=== PATIENT | female | born 1980 | race Caucasian/White ===

== ENCOUNTER → 2023-06-08 13:04 | Outpatient (REF) | payer BC, SELFPAY | LOC: PAVMRI 13:04 | PROVIDERS: ATTENDING PHYSICIAN Psychiatry & Neurology Neurology; FAMILY PHYSICIAN Family Medicine | DX: R42 Dizziness and giddiness (principal) | CPT/HCPCS: 70544; 70549; 70553; A9585 ==

== ENCOUNTER → 2023-06-18 11:51 | Outpatient (REF) | payer BC, SELFPAY | LOC: DHCBC/DCA 11:51 | PROVIDERS: ATTENDING PHYSICIAN Internal Medicine Interventional Cardiology; FAMILY PHYSICIAN Family Medicine | DX: R07.89 Other chest pain (principal); R00.2 Palpitations; M54.2 Cervicalgia | CPT/HCPCS: 78452; 93017; A9500; J2785 ==

== ENCOUNTER 2023-06-25 07:53 | Outpatient (RCR) | payer BC, SELFPAY ==
[2023-06-02] MEDS: NSS 500 IV (09:18)
[2023-06-02] MEDS: TYLENOL 650 MG PO (09:19)
[2023-06-02] MEDS: BENADRYL 50.5 MG IV (09:21)
[2023-06-02 09:27] VITALS: BP 101/77
[2023-06-02] MEDS: GAMMAGARD 200 IV ×2 (09:42→11:01)
[2023-06-02 09:46] VITALS: BP 106/73
[2023-06-02 10:16] VITALS: BP 106/71
[2023-06-02 10:46] VITALS: BP 109/74
[2023-06-02 11:16] VITALS: BP 102/68
[2023-06-02 11:50] VITALS: BP 109/74
[2023-06-03] MEDS: TYLENOL 650 MG PO (08:53)
[2023-06-03] MEDS: BENADRYL 50.5 MG IV (08:55)
[2023-06-03] MEDS: NSS 500 IV (08:57)
[2023-06-03 09:00] VITALS: BP 112/74
[2023-06-03] MEDS: GAMMAGARD 200 IV ×2 (09:19→10:36)
[2023-06-03 09:22] VITALS: BP 104/68
[2023-06-03 09:52] VITALS: BP 111/70
[2023-06-03 10:22] VITALS: BP 117/75
[2023-06-03 10:52] VITALS: BP 119/71
[2023-06-03 11:22] VITALS: BP 113/74
[2023-06-04 08:48] VITALS: BP 124/76
[2023-06-04] MEDS: NSS 500 IV (08:55)
[2023-06-04] MEDS: TYLENOL 650 MG PO (08:57)
[2023-06-04] MEDS: BENADRYL 50.5 MG IV (09:01)
[2023-06-04 09:25] VITALS: BP 113/68
[2023-06-04] MEDS: GAMMAGARD 200 IV ×2 (09:25→10:45)
[2023-06-04 09:55] VITALS: BP 113/76
[2023-06-04 10:25] VITALS: BP 114/71
[2023-06-04 10:55] VITALS: BP 105/68
[2023-06-04 11:25] VITALS: BP 112/70
[2023-06-05 07:45] VITALS: BP 125/70
[2023-06-05] MEDS: NSS 500 IV (08:15)
[2023-06-05] MEDS: TYLENOL 650 MG PO (08:16)
[2023-06-05] MEDS: BENADRYL 50.5 MG IV (08:18)
[2023-06-05] MEDS: GAMMAGARD 200 IV ×2 (08:48→10:17)
[2023-06-05 08:56] VITALS: BP 124/73
[2023-06-05 09:26] VITALS: BP 114/72
[2023-06-05 09:56] VITALS: BP 116/70
[2023-06-05 10:26] VITALS: BP 118/76
[2023-06-05 10:56] VITALS: BP 123/83
[2023-06-08 07:45] VITALS: BP 125/72
[2023-06-08] MEDS: NSS 500 IV (08:27)
[2023-06-08] MEDS: TYLENOL 650 MG PO (08:29)
[2023-06-08] MEDS: BENADRYL 50.5 MG IV (08:30)
[2023-06-08] MEDS: GAMMAGARD 200 IV ×2 (09:01→10:17)
[2023-06-08 09:04] VITALS: BP 110/61
[2023-06-08 09:34] VITALS: BP 111/64
[2023-06-08 10:04] VITALS: BP 115/65
[2023-06-08 10:34] VITALS: BP 110/58
[2023-06-08 11:04] VITALS: BP 110/61
[2023-06-22 08:30] VITALS: BP 123/74
[2023-06-22] MEDS: NSS 500 IV (09:05)
[2023-06-22] MEDS: BENADRYL 50.5 MG IV (09:07)
[2023-06-22] MEDS: TYLENOL 650 MG PO (09:08)
[2023-06-22] MEDS: GAMMAGARD 200 IV ×2 (09:36→10:51)
[2023-06-22 09:40] VITALS: BP 103/75
[2023-06-22 10:10] VITALS: BP 101/71
[2023-06-22 10:40] VITALS: BP 105/73
[2023-06-22 11:10] VITALS: BP 103/75
[2023-06-22 11:40] VITALS: BP 108/75
[2023-06-23 08:06] VITALS: BP 117/71
[2023-06-23] MEDS: TYLENOL 650 MG PO (08:15)
[2023-06-23] MEDS: NSS 500 IV (08:16)
[2023-06-23] MEDS: BENADRYL 50.5 MG IV (08:20)
[2023-06-23 08:45] VITALS: BP 114/73
[2023-06-23] MEDS: GAMMAGARD 200 IV ×2 (08:45→10:04)
[2023-06-23 09:15] VITALS: BP 106/70
[2023-06-23 09:45] VITALS: BP 113/79
[2023-06-23 10:15] VITALS: BP 124/88
[2023-06-23 10:43] VITALS: BP 112/75
[2023-06-24 08:06] VITALS: BP 121/76
[2023-06-24] MEDS: NSS 500 IV (08:07)
[2023-06-24] MEDS: TYLENOL 650 MG PO (08:10)
[2023-06-24] MEDS: BENADRYL 50.5 MG IV (08:12)
[2023-06-24 08:40] VITALS: BP 112/76
[2023-06-24] MEDS: GAMMAGARD 200 IV ×2 (08:40→09:56)
[2023-06-24 09:10] VITALS: BP 112/76
[2023-06-24 09:40] VITALS: BP 108/68
[2023-06-24 10:10] VITALS: BP 112/67
[2023-06-24 10:40] VITALS: BP 114/78
[2023-06-25 08:00] VITALS: BP 118/72
[2023-06-25] MEDS: NSS 500 IV (08:10)
[2023-06-25] MEDS: TYLENOL 650 MG PO (08:11)
[2023-06-25] MEDS: BENADRYL 50.5 MG IV (08:14)
[2023-06-25] MEDS: GAMMAGARD 200 IV ×2 (08:44→09:58)
[2023-06-25 08:45] VITALS: BP 118/76
[2023-06-25 09:15] VITALS: BP 117/75
[2023-06-25 09:45] VITALS: BP 120/83
[2023-06-25 10:15] VITALS: BP 126/80
[2023-06-25 10:43] VITALS: BP 125/89
== END 2023-06-25 15:39 | disposition home or self-care (01) ==
LOC: OID 07:53
PROVIDERS: ATTENDING PHYSICIAN Psychiatry & Neurology Neurology; FAMILY PHYSICIAN Family Medicine; OTHER PHYSICIAN Internal Medicine Endocrinology, Diabetes & Metabolism
DX: G25.82 Stiff-man syndrome (principal); G70.00 Myasthenia gravis without (acute) exacerbation; M32.9 Systemic lupus erythematosus, unspecified; D51.9 Vitamin B12 deficiency anemia, unspecified
CPT/HCPCS: 96365; 96366; 96367; J1569

== ENCOUNTER 2023-07-17 07:57 | Outpatient (RCR) | payer BC, SELFPAY ==
[2023-06-26 08:10] VITALS: BP 112/68
[2023-06-26] MEDS: TYLENOL 650 MG PO (08:18)
[2023-06-26] MEDS: NSS 500 IV (08:20)
[2023-06-26] MEDS: BENADRYL 50.5 MG IV (08:20)
[2023-06-26 08:40] VITALS: BP 114/72
[2023-06-26] MEDS: GAMMAGARD 200 IV ×2 (08:41→10:02)
[2023-06-26 09:10] VITALS: BP 113/72
[2023-06-26 09:40] VITALS: BP 117/70
[2023-06-26 10:10] VITALS: BP 116/75
[2023-06-26 10:35] VITALS: BP 117/76
[2023-07-13 07:45] VITALS: BP 118/79
[2023-07-13] MEDS: TYLENOL 650 MG PO (08:37)
[2023-07-13] MEDS: BENADRYL 50.5 MG IV (08:38)
[2023-07-13] MEDS: NSS 500 IV (08:39)
[2023-07-13] MEDS: GAMMAGARD 50 IV (09:00)
[2023-07-13 09:04] VITALS: BP 114/71
[2023-07-13 09:34] VITALS: BP 107/75
[2023-07-13] MEDS: GAMMAGARD 300 IV (09:37)
[2023-07-13 10:04] VITALS: BP 107/77
[2023-07-13 10:34] VITALS: BP 109/75
[2023-07-13 11:04] VITALS: BP 118/77
[2023-07-14] MEDS: NSS 500 IV (08:46)
[2023-07-14] MEDS: TYLENOL 650 MG PO (08:48)
[2023-07-14] MEDS: BENADRYL 50.5 MG IV (08:49)
[2023-07-14 08:55] VITALS: BP 124/82
[2023-07-14] MEDS: GAMMAGARD 50 IV (09:13)
[2023-07-14 09:16] VITALS: BP 125/79
[2023-07-14 09:46] VITALS: BP 133/86
[2023-07-14] MEDS: GAMMAGARD 300 IV (09:49)
[2023-07-14 10:16] VITALS: BP 118/79
[2023-07-14 10:46] VITALS: BP 126/83
[2023-07-14 11:00] VITALS: BP 126/82
[2023-07-15] MEDS: NSS 500 IV (08:17)
[2023-07-15] MEDS: TYLENOL 650 MG PO (08:18)
[2023-07-15] MEDS: BENADRYL 50.5 MG IV (08:20)
[2023-07-15 08:31] VITALS: BP 121/75
[2023-07-15 08:47] VITALS: BP 111/73
[2023-07-15] MEDS: GAMMAGARD 50 IV (08:47)
[2023-07-15 09:17] VITALS: BP 111/80
[2023-07-15] MEDS: GAMMAGARD 300 IV (09:23)
[2023-07-15 09:47] VITALS: BP 108/83
[2023-07-15 10:17] VITALS: BP 116/81
[2023-07-15 10:47] VITALS: BP 112/72
[2023-07-16 08:00] VITALS: BP 122/80
[2023-07-16] MEDS: NSS 500 IV (08:14)
[2023-07-16] MEDS: TYLENOL 650 MG PO (08:16)
[2023-07-16] MEDS: BENADRYL 50.5 MG IV (08:17)
[2023-07-16] MEDS: GAMMAGARD 50 IV (08:42)
[2023-07-16 08:48] VITALS: BP 114/73
[2023-07-16 09:18] VITALS: BP 117/86
[2023-07-16] MEDS: GAMMAGARD 300 IV (09:19)
[2023-07-16 09:48] VITALS: BP 113/72
[2023-07-16 10:18] VITALS: BP 116/79
[2023-07-16 10:48] VITALS: BP 121/77
[2023-07-17] VITALS (7 sets, daily range): BP systolic 114–126; BP diastolic 77–82
[2023-07-17] MEDS: NSS 500 IV (08:19)
[2023-07-17] MEDS: TYLENOL 650 MG PO (08:20)
[2023-07-17] MEDS: BENADRYL 50.5 MG IV (08:22)
[2023-07-17] MEDS: GAMMAGARD 50 IV (08:45)
[2023-07-17] MEDS: GAMMAGARD 300 IV (09:18)
== END 2023-07-20 08:06 | disposition home or self-care (01) ==
LOC: OID 07:57
PROVIDERS: ATTENDING PHYSICIAN Psychiatry & Neurology Neurology; FAMILY PHYSICIAN Family Medicine; OTHER PHYSICIAN Internal Medicine Endocrinology, Diabetes & Metabolism
DX: G25.82 Stiff-man syndrome (principal); G70.00 Myasthenia gravis without (acute) exacerbation; M32.9 Systemic lupus erythematosus, unspecified; D51.9 Vitamin B12 deficiency anemia, unspecified
CPT/HCPCS: 96361; 96365; 96366; 96367; J1569

== ENCOUNTER 2023-08-25 07:54 | Outpatient (RCR) | payer BC, SELFPAY ==
[2023-08-03] MEDS: NSS 500 IV (08:39)
[2023-08-03] MEDS: BENADRYL 50.5 MG IV (08:41)
[2023-08-03] MEDS: TYLENOL 650 MG PO (08:42)
[2023-08-03 08:47] VITALS: BP 112/75
[2023-08-03 09:10] VITALS: BP 111/78
[2023-08-03] MEDS: GAMMAGARD 50 IV (09:10)
[2023-08-03 09:13] VITALS: BP 115/73
[2023-08-03 09:43] VITALS: BP 121/73
[2023-08-03] MEDS: GAMMAGARD 300 IV (09:47)
[2023-08-03 10:13] VITALS: BP 122/68
[2023-08-03 10:59] VITALS: BP 112/73
[2023-08-04 08:00] VITALS: BP 123/80
[2023-08-04] MEDS: BENADRYL 50.5 MG IV (08:18)
[2023-08-04] MEDS: TYLENOL 650 MG PO (08:19)
[2023-08-04] MEDS: NSS 500 IV (08:20)
[2023-08-04 08:44] VITALS: BP 113/68
[2023-08-04] MEDS: GAMMAGARD 50 IV (08:44)
[2023-08-04 09:00] VITALS: BP 117/79
[2023-08-04] MEDS: GAMMAGARD 300 IV (09:21)
[2023-08-04 09:30] VITALS: BP 116/81
[2023-08-04 10:00] VITALS: BP 113/74
[2023-08-04 10:30] VITALS: BP 120/76
[2023-08-05] MEDS: BENADRYL 50.5 MG IV (08:16)
[2023-08-05] MEDS: TYLENOL 650 MG PO (08:18)
[2023-08-05] MEDS: NSS 250 IV ×2 (08:19→10:20)
[2023-08-05 08:31] VITALS: BP 114/74
[2023-08-05] MEDS: GAMMAGARD 50 IV (08:47)
[2023-08-05 08:49] VITALS: BP 115/73
[2023-08-05 09:19] VITALS: BP 119/74
[2023-08-05] MEDS: GAMMAGARD 300 IV (09:25)
[2023-08-05 09:49] VITALS: BP 110/73
[2023-08-05 10:19] VITALS: BP 115/75
[2023-08-05 10:49] VITALS: BP 119/72
[2023-08-06 07:55] VITALS: BP 122/74
[2023-08-06] MEDS: TYLENOL 650 MG PO (08:19)
[2023-08-06] MEDS: BENADRYL 50.5 MG IV (08:20)
[2023-08-06] MEDS: NSS 250 IV ×2 (08:21→10:32)
[2023-08-06 08:50] VITALS: BP 122/74
[2023-08-06] MEDS: GAMMAGARD 50 IV (08:50)
[2023-08-06] MEDS: GAMMAGARD 300 IV (09:24)
[2023-08-06 11:10] VITALS: BP 118/74
[2023-08-07] MEDS: TYLENOL 650 MG PO (08:09)
[2023-08-07] MEDS: BENADRYL 50.5 MG IV (08:11)
[2023-08-07] MEDS: NSS 250 IV ×2 (08:13→10:30)
[2023-08-07] MEDS: GAMMAGARD 50 IV (08:37)
[2023-08-07 08:41] VITALS: BP 116/72
[2023-08-07 09:11] VITALS: BP 110/73
[2023-08-07] MEDS: GAMMAGARD 300 IV (09:17)
[2023-08-07 09:41] VITALS: BP 114/75
[2023-08-07 10:11] VITALS: BP 114/75
[2023-08-07 10:30] VITALS: BP 111/74
[2023-08-24] MEDS: TYLENOL 650 MG PO (08:24)
[2023-08-24] MEDS: BENADRYL 50.5 MG IV (08:25)
[2023-08-24] MEDS: NSS 250 IV (08:27)
[2023-08-24 08:36] VITALS: BP 113/67
[2023-08-24] MEDS: GAMMAGARD 50 IV (08:56)
[2023-08-24 09:03] VITALS: BP 109/64
[2023-08-24 09:33] VITALS: BP 101/70
[2023-08-24] MEDS: GAMMAGARD 300 IV (09:33)
[2023-08-24 10:03] VITALS: BP 112/67
[2023-08-24 10:33] VITALS: BP 105/74
[2023-08-24 11:03] VITALS: BP 108/70
[2023-08-25 07:55] VITALS: BP 114/82
[2023-08-25] MEDS: BENADRYL 50.5 MG IV (08:14)
[2023-08-25] MEDS: TYLENOL 650 MG PO (08:15)
[2023-08-25] MEDS: NSS 250 IV (08:16)
[2023-08-25] MEDS: GAMMAGARD 50 IV (08:47)
[2023-08-25 08:51] VITALS: BP 108/66
[2023-08-25 09:21] VITALS: BP 119/75
[2023-08-25] MEDS: GAMMAGARD 300 IV (09:24)
[2023-08-25 09:51] VITALS: BP 116/67
[2023-08-25 10:21] VITALS: BP 115/66
[2023-08-25 10:40] VITALS: BP 109/72
== END 2023-08-25 14:42 | disposition home or self-care (01) ==
LOC: OID 07:54
PROVIDERS: ATTENDING PHYSICIAN Psychiatry & Neurology Neurology; FAMILY PHYSICIAN Family Medicine; OTHER PHYSICIAN Internal Medicine Endocrinology, Diabetes & Metabolism
DX: G25.82 Stiff-man syndrome (principal); G70.00 Myasthenia gravis without (acute) exacerbation; M32.9 Systemic lupus erythematosus, unspecified; D51.9 Vitamin B12 deficiency anemia, unspecified
CPT/HCPCS: 96365; 96366; 96367; 96368; J1569

== ENCOUNTER 2023-09-18 07:56 | Outpatient (RCR) | payer BC, SELFPAY ==
[2023-08-26] MEDS: NSS 250 IV (08:50)
[2023-08-26 08:53] VITALS: BP 105/72
[2023-08-26] MEDS: TYLENOL 650 MG PO (08:57)
[2023-08-26] MEDS: BENADRYL 50.5 MG IV (08:58)
[2023-08-26 09:24] VITALS: BP 114/70
[2023-08-26] MEDS: GAMMAGARD 50 IV (09:24)
[2023-08-26 09:54] VITALS: BP 111/74
[2023-08-26] MEDS: GAMMAGARD 300 IV (09:59)
[2023-08-26 10:24] VITALS: BP 108/60
[2023-08-26 10:54] VITALS: BP 115/70
[2023-08-26 11:13] VITALS: BP 110/70
[2023-08-27 08:30] VITALS: BP 121/76
[2023-08-27] MEDS: TYLENOL 650 MG PO (08:49)
[2023-08-27] MEDS: BENADRYL 50.5 MG IV (08:50)
[2023-08-27] MEDS: NSS 250 IV (08:52)
[2023-08-27] MEDS: GAMMAGARD 50 IV (09:20)
[2023-08-27 09:24] VITALS: BP 107/72
[2023-08-27 09:54] VITALS: BP 108/72
[2023-08-27] MEDS: GAMMAGARD 300 IV (09:59)
[2023-08-27 10:24] VITALS: BP 107/72
[2023-08-27 10:54] VITALS: BP 119/71
[2023-08-27 11:24] VITALS: BP 115/73
[2023-08-28] MEDS: TYLENOL 650 MG PO (08:08)
[2023-08-28] MEDS: NSS 250 IV (08:09)
[2023-08-28] MEDS: BENADRYL 50.5 MG IV (08:09)
[2023-08-28 08:22] VITALS: BP 119/73
[2023-08-28] MEDS: GAMMAGARD 50 IV (08:37)
[2023-08-28 08:42] VITALS: BP 116/80
[2023-08-28 09:12] VITALS: BP 115/79
[2023-08-28] MEDS: GAMMAGARD 300 IV (09:14)
[2023-08-28 09:42] VITALS: BP 117/74
[2023-08-28 10:12] VITALS: BP 122/75
[2023-08-28 10:35] VITALS: BP 115/77
[2023-09-14] MEDS: NSS 250 IV (08:00)
[2023-09-14 08:05] VITALS: BP 116/73
[2023-09-14] MEDS: TYLENOL 650 MG PO (08:31)
[2023-09-14] MEDS: BENADRYL 50.5 MG IV (08:31)
[2023-09-14 08:45] LABS: % Basophils 0.9 % (0-2); % Immature Granulocytes 0.2 % (0-0.5); % Lymphocytes 26.8 % (20.5-51.1); % Monocytes 8.3 % (1.7-9.3); % Neutrophils 61.8 % (42.2-75.2); Absolute Eosinophils 0.1 10^3/uL (0-0.7); Absolute Lymphocytes 1.2 10^3/uL (1.2-3.4); Absolute Monocytes 0.4 10^3/uL (0.1-0.6); Absolute Neutrophils 2.7 10^3/uL (1.4-6.5); Hematocrit 37.2 % (37.0-47.0); Hemoglobin 13.1 g/dL (12.0-16.0); Mean Corp Hgb Conc. 35.2 g/dL (33.0-37.0); Mean Corpuscular Hgb 36.3 pg (27.0-31.0); Mean Platelet Volume 10.2 fL (7.4-10.4); Nucleated Red Blood Cells % 0 %; Platelet Count 251 10^3/uL (130-400); Red Blood Cell Count 3.61 10^6/uL (4.20-5.40); White Blood Cell Count 4.4 10^3/uL (4.8-10.8)
[2023-09-14] MEDS: GAMMAGARD 50 IV (08:58)
[2023-09-14 08:59] VITALS: BP 115/71
[2023-09-14 09:30] VITALS: BP 112/68
[2023-09-14 09:31] LABS: ALT (SGPT) 33 U/L (0-35); AST (SGOT) 61 U/L (14-36); Albumin 3.9 g/dl (3.5-5.0); Alkaline Phosphatase 91 U/L (38-126); Blood Urea Nitrogen 13 mg/dl (7-17); Calcium 9.4 mg/dl (8.4-10.2); Carbon Dioxide 22 mmol/L (22-30); Chloride 103 mmol/L (98-107); Glucose 106 mg/dl (70-99); Potassium 3.6 mmol/L (3.5-5.1); Sodium 135 mmol/L (135-145); Total Bilirubin 0.9 mg/dl (0.2-1.3); Total Protein 7.6 g/dl (6.3-8.2); eGFR > 60.00
[2023-09-14] MEDS: GAMMAGARD 300 IV (09:33)
[2023-09-14 09:47] LABS: Complement C3 136 mg/dl (88-165)
[2023-09-14 10:00] VITALS: BP 103/63
[2023-09-14 10:30] VITALS: BP 102/66
[2023-09-14 10:45] VITALS: BP 108/67
[2023-09-14 11:06] LABS: Erythrocyte Sed Rate 66 mm/hour (0-20)
[2023-09-14 19:20] LABS: Hepatitis B Surface Antigen Negative (Negative)
[2023-09-14 19:29] LABS: Hepatitis A IgM Antibody Negative (Negative); Hepatitis B Core Ab, IgM Negative (Negative)
[2023-09-14 19:38] LABS: Hepatitis B Core Ab, Total Negative (Negative); Hepatitis B Surface Antibody Positive; Hepatitis C Antibody Negative (Negative)
[2023-09-14 20:06] LABS: Hepatitis A Antibody, Total Positive (Negative)
[2023-09-15 08:00] VITALS: BP 115/69
[2023-09-15] MEDS: TYLENOL 650 MG PO (08:15)
[2023-09-15] MEDS: BENADRYL 50.5 MG IV (08:17)
[2023-09-15] MEDS: NSS 250 IV (08:18)
[2023-09-15] MEDS: GAMMAGARD 50 IV (08:45)
[2023-09-15 08:49] VITALS: BP 105/68
[2023-09-15 09:19] VITALS: BP 116/70
[2023-09-15] MEDS: GAMMAGARD 300 IV (09:22)
[2023-09-15 09:49] VITALS: BP 106/68
[2023-09-15 10:19] VITALS: BP 107/69
[2023-09-15 10:35] VITALS: BP 109/69
[2023-09-15 14:45] LABS: HIV Combo Negative (Negative)
[2023-09-16 01:26] LABS: ds-DNA Ab, IgG Reflex To Titer 16 IU (0-24)
[2023-09-16] MEDS: BENADRYL 50.5 MG IV (10:51)
[2023-09-16] MEDS: NSS 250 IV (10:53)
[2023-09-16] MEDS: TYLENOL 650 MG PO (10:53)
[2023-09-16 10:59] VITALS: BP 118/79
[2023-09-16] MEDS: GAMMAGARD 50 IV (11:22)
[2023-09-16 11:26] VITALS: BP 122/76
[2023-09-16 11:56] VITALS: BP 112/80
[2023-09-16] MEDS: GAMMAGARD 300 IV (12:00)
[2023-09-16 12:26] VITALS: BP 120/70
[2023-09-16 12:56] VITALS: BP 123/75
[2023-09-16 13:26] VITALS: BP 117/72
[2023-09-17 08:00] VITALS: BP 124/70
[2023-09-17] MEDS: NSS 250 IV (08:20)
[2023-09-17] MEDS: TYLENOL 650 MG PO (08:21)
[2023-09-17] MEDS: BENADRYL 50.5 MG IV (08:22)
[2023-09-17] MEDS: GAMMAGARD 50 IV (08:49)
[2023-09-17 08:53] VITALS: BP 110/76
[2023-09-17 09:23] VITALS: BP 107/73
[2023-09-17] MEDS: GAMMAGARD 300 IV (09:26)
[2023-09-17 09:53] VITALS: BP 117/79
[2023-09-17 10:23] VITALS: BP 114/75
[2023-09-17 10:53] VITALS: BP 114/72
[2023-09-17 11:28] LABS: 24 Hour Urine Total Volume Random mL; 5HIAA, Urine 4.8 mg/L; 5HIAA/Creatinine Ratio 2 mg/gCR (0-14); Creatinine, Urine per Volume 263 mg/dL; Urine Collection Length Random hr
[2023-09-18 08:00] VITALS: BP 119/78
[2023-09-18] MEDS: TYLENOL 650 MG PO (08:11)
[2023-09-18] MEDS: BENADRYL 50.5 MG IV (08:13)
[2023-09-18] MEDS: GAMMAGARD 50 IV (08:47)
[2023-09-18 08:54] VITALS: BP 109/72
[2023-09-18] MEDS: GAMMAGARD 300 IV (09:23)
[2023-09-18 09:32] VITALS: BP 107/77
[2023-09-18 10:02] VITALS: BP 119/81
[2023-09-18 10:32] VITALS: BP 109/78
[2023-09-18 10:50] VITALS: BP 112/73
[2023-09-18 14:41] LABS: Quantiferon Plus TB1 minus NIL 0.01 IU/mL (<=0.34); Quantiferon Plus TB2 minus NIL 0.01 IU/mL (<=0.34); Quantiferon TB Gold Plus Negative (Negative)
== END 2023-09-22 08:18 | disposition home or self-care (01) ==
LOC: OID 07:56
PROVIDERS: ATTENDING PHYSICIAN Psychiatry & Neurology Neurology; FAMILY PHYSICIAN Family Medicine; OTHER PHYSICIAN Internal Medicine Endocrinology, Diabetes & Metabolism; OTHER PHYSICIAN Internal Medicine Rheumatology
DX: G25.82 Stiff-man syndrome (principal); G70.00 Myasthenia gravis without (acute) exacerbation; M32.9 Systemic lupus erythematosus, unspecified; D51.9 Vitamin B12 deficiency anemia, unspecified
CPT/HCPCS: 80053; 83497; 83835; 85025; 85652; 86140; 86160; 86225; 86480; 86704; 86705; 86706; 86708; 86709; 86803; 87340; 87389; 96365; 96366; 96367; J1569

== ENCOUNTER 2023-10-23 08:16 | Outpatient (RCR) | payer BC, SELFPAY ==
[2023-10-05] MEDS: TYLENOL 650 MG PO (08:32)
[2023-10-05] MEDS: BENADRYL 50.5 MG IV (08:34)
[2023-10-05] MEDS: NSS 250 IV (08:35)
[2023-10-05 08:51] VITALS: BP 105/73
[2023-10-05] MEDS: GAMMAGARD 50 IV (09:03)
[2023-10-05 09:07] VITALS: BP 121/69
[2023-10-05 09:37] VITALS: BP 109/72
[2023-10-05] MEDS: GAMMAGARD 300 IV (09:38)
[2023-10-05 10:07] VITALS: BP 113/72
[2023-10-05 10:37] VITALS: BP 116/62
[2023-10-05 11:07] VITALS: BP 106/74
[2023-10-06] MEDS: TYLENOL 650 MG PO (08:24)
[2023-10-06] MEDS: NSS 250 IV (08:24)
[2023-10-06] MEDS: BENADRYL 50.5 MG IV (08:25)
[2023-10-06 08:43] VITALS: BP 116/78
[2023-10-06] MEDS: GAMMAGARD 50 IV (08:53)
[2023-10-06 08:57] VITALS: BP 113/74
[2023-10-06 09:27] VITALS: BP 114/72
[2023-10-06] MEDS: GAMMAGARD 300 IV (09:32)
[2023-10-06 09:57] VITALS: BP 108/74
[2023-10-06 10:27] VITALS: BP 113/76
[2023-10-06 10:57] VITALS: BP 120/76
[2023-10-07 08:00] VITALS: BP 124/78
[2023-10-07] MEDS: TYLENOL 650 MG PO (08:16)
[2023-10-07] MEDS: BENADRYL 50.5 MG IV (08:18)
[2023-10-07] MEDS: NSS 250 IV (08:19)
[2023-10-07] MEDS: GAMMAGARD 50 IV (08:50)
[2023-10-07 08:55] VITALS: BP 109/73
[2023-10-07 09:28] VITALS: BP 109/73
[2023-10-07] MEDS: GAMMAGARD 300 IV (09:28)
[2023-10-07 09:58] VITALS: BP 115/81
[2023-10-07 10:28] VITALS: BP 112/75
[2023-10-07 10:45] VITALS: BP 122/77
[2023-10-08 08:00] VITALS: BP 122/80
[2023-10-08] MEDS: NSS 250 IV (08:17)
[2023-10-08] MEDS: BENADRYL 50.5 MG IV (08:18)
[2023-10-08] MEDS: TYLENOL 650 MG PO (08:20)
[2023-10-08] MEDS: GAMMAGARD 50 IV (08:50)
[2023-10-08 08:55] VITALS: BP 112/77
[2023-10-08 09:25] VITALS: BP 124/77
[2023-10-08] MEDS: GAMMAGARD 300 IV (09:31)
[2023-10-08 09:55] VITALS: BP 123/76
[2023-10-08 10:25] VITALS: BP 122/79
[2023-10-08 10:55] VITALS: BP 119/77
[2023-10-09 08:15] VITALS: BP 121/80
[2023-10-09 08:16] VITALS: BP 108/77
[2023-10-09] MEDS: GAMMAGARD 50 IV (08:16)
[2023-10-09 08:30] VITALS: BP 119/77
[2023-10-09] MEDS: GAMMAGARD 300 IV (08:50)
[2023-10-09 09:00] VITALS: BP 112/78
[2023-10-09 09:30] VITALS: BP 115/77
[2023-10-09 10:00] VITALS: BP 119/81
[2023-10-19] VITALS (7 sets, daily range): BP systolic 111–121; BP diastolic 70–84
[2023-10-19] MEDS: NSS 250 IV (08:20)
[2023-10-19] MEDS: TYLENOL 650 MG PO (08:23)
[2023-10-19] MEDS: BENADRYL 50.5 MG IV (08:25)
[2023-10-19] MEDS: GAMMAGARD 50 IV (08:50)
[2023-10-19] MEDS: GAMMAGARD 300 IV (09:27)
[2023-10-20 07:50] VITALS: BP 125/76
[2023-10-20 08:02] VITALS: BMI 30.4
[2023-10-20] MEDS: NSS 250 IV (08:06)
[2023-10-20] MEDS: BENADRYL 50.5 MG IV (08:07)
[2023-10-20] MEDS: TYLENOL 650 MG PO (08:08)
[2023-10-20] MEDS: GAMMAGARD 50 IV (08:36)
[2023-10-20 08:40] VITALS: BP 138/91
[2023-10-20 09:10] VITALS: BP 125/81
[2023-10-20] MEDS: GAMMAGARD 300 IV (09:15)
[2023-10-20 09:40] VITALS: BP 111/73
[2023-10-20 10:10] VITALS: BP 119/77
[2023-10-20 10:30] VITALS: BP 114/78
[2023-10-21] MEDS: TYLENOL 650 MG PO (10:36)
[2023-10-21] MEDS: NSS 250 IV (10:36)
[2023-10-21] MEDS: BENADRYL 50.5 MG IV (10:38)
[2023-10-21 10:45] VITALS: BP 129/85
[2023-10-21] MEDS: GAMMAGARD 50 IV (11:08)
[2023-10-21 11:12] VITALS: BP 115/78
[2023-10-21 11:42] VITALS: BP 120/81
[2023-10-21] MEDS: GAMMAGARD 300 IV (11:44)
[2023-10-21 12:12] VITALS: BP 112/80
[2023-10-21 12:42] VITALS: BP 124/83
[2023-10-21 12:55] VITALS: BP 120/78
[2023-10-22 08:00] VITALS: BP 120/78
[2023-10-22] MEDS: BENADRYL 50.5 MG IV (08:16)
[2023-10-22] MEDS: NSS 250 IV (08:18)
[2023-10-22] MEDS: TYLENOL 650 MG PO (08:18)
[2023-10-22] MEDS: GAMMAGARD 50 IV (08:50)
[2023-10-22 08:52] VITALS: BP 116/75
[2023-10-22 09:22] VITALS: BP 115/80
[2023-10-22] MEDS: GAMMAGARD 300 IV (09:26)
[2023-10-22 09:52] VITALS: BP 115/73
[2023-10-22 10:22] VITALS: BP 123/74
[2023-10-23] MEDS: TYLENOL 650 MG PO (08:33)
[2023-10-23] MEDS: BENADRYL 50.5 MG IV (08:34)
[2023-10-23] MEDS: NSS 250 IV (08:35)
[2023-10-23 08:45] VITALS: BP 124/74
[2023-10-23] MEDS: GAMMAGARD 50 IV (09:10)
[2023-10-23 09:11] VITALS: BP 120/76
[2023-10-23 09:41] VITALS: BP 116/76
[2023-10-23] MEDS: GAMMAGARD 300 IV (09:44)
[2023-10-23 10:11] VITALS: BP 122/82
[2023-10-23 10:41] VITALS: BP 130/81
[2023-10-23 11:03] VITALS: BP 130/78
== END 2023-10-25 23:59 | disposition home or self-care (01) ==
LOC: OID 08:16
PROVIDERS: ATTENDING PHYSICIAN Psychiatry & Neurology Neurology; FAMILY PHYSICIAN Family Medicine; OTHER PHYSICIAN Internal Medicine Endocrinology, Diabetes & Metabolism; OTHER PHYSICIAN Internal Medicine Rheumatology
DX: G25.82 Stiff-man syndrome (principal); G70.00 Myasthenia gravis without (acute) exacerbation; M32.9 Systemic lupus erythematosus, unspecified; D51.9 Vitamin B12 deficiency anemia, unspecified
CPT/HCPCS: 96361; 96365; 96366; 96367; 96368; J1569

== ENCOUNTER 2023-11-13 07:58 | Outpatient (RCR) | payer BC, SELFPAY ==
[2023-11-09 08:00] VITALS: BP 112/53
[2023-11-09] MEDS: BENADRYL 50.5 MG IV (08:30)
[2023-11-09] MEDS: TYLENOL 650 MG PO (08:31)
[2023-11-09] MEDS: NSS 250 IV (08:32)
[2023-11-09] MEDS: GAMMAGARD 50 IV (09:00)
[2023-11-09 09:03] VITALS: BP 121/77
[2023-11-09 09:34] VITALS: BP 119/75
[2023-11-09] MEDS: GAMMAGARD 300 IV (09:37)
[2023-11-09 10:04] VITALS: BP 120/76
[2023-11-09 10:34] VITALS: BP 114/75
[2023-11-09 10:50] VITALS: BP 120/74
[2023-11-10] MEDS: NSS 250 IV (08:16)
[2023-11-10] MEDS: BENADRYL 50.5 MG IV (08:18)
[2023-11-10] MEDS: TYLENOL 650 MG PO (08:19)
[2023-11-10 08:27] VITALS: BP 124/77
[2023-11-10] MEDS: GAMMAGARD 50 IV (08:53)
[2023-11-10 08:55] VITALS: BP 122/72
[2023-11-10 09:25] VITALS: BP 125/77
[2023-11-10] MEDS: GAMMAGARD 300 IV (09:40)
[2023-11-10 09:55] VITALS: BP 119/74
[2023-11-10 10:25] VITALS: BP 111/76
[2023-11-10 11:00] VITALS: BP 111/76
[2023-11-11 08:00] VITALS: BP 112/76
[2023-11-11] MEDS: BENADRYL 50.5 MG IV (08:23)
[2023-11-11] MEDS: TYLENOL 650 MG PO (08:24)
[2023-11-11] MEDS: NSS 250 IV (08:25)
[2023-11-11] MEDS: GAMMAGARD 50 IV (08:53)
[2023-11-11 08:54] VITALS: BP 117/78
[2023-11-11 09:24] VITALS: BP 118/75
[2023-11-11] MEDS: GAMMAGARD 300 IV (09:27)
[2023-11-11 09:54] VITALS: BP 114/74
[2023-11-11 10:24] VITALS: BP 114/78
[2023-11-12 08:00] VITALS: BP 117/80
[2023-11-12] MEDS: NSS 250 IV (08:15)
[2023-11-12] MEDS: BENADRYL 50.5 MG IV (08:17)
[2023-11-12] MEDS: TYLENOL 650 MG PO (08:19)
[2023-11-12] MEDS: GAMMAGARD 50 IV (08:54)
[2023-11-12 08:57] VITALS: BP 122/77
[2023-11-12 09:27] VITALS: BP 124/83
[2023-11-12] MEDS: GAMMAGARD 300 IV (09:30)
[2023-11-12 09:57] VITALS: BP 124/83
[2023-11-12 10:27] VITALS: BP 119/77
[2023-11-12 10:50] VITALS: BP 125/80
[2023-11-13] MEDS: TYLENOL 650 MG PO (08:09)
[2023-11-13] MEDS: NSS 250 IV (08:10)
[2023-11-13] MEDS: BENADRYL 50.5 MG IV (08:13)
[2023-11-13 08:22] VITALS: BP 122/72
[2023-11-13] MEDS: GAMMAGARD 50 IV (08:43)
[2023-11-13 08:45] VITALS: BP 126/76
[2023-11-13 09:15] VITALS: BP 130/77
[2023-11-13] MEDS: GAMMAGARD 300 IV (09:19)
[2023-11-13 09:45] VITALS: BP 131/79
[2023-11-13 10:15] VITALS: BP 129/77
[2023-11-13 10:50] VITALS: BP 135/85
== END 2023-11-16 08:48 | disposition home or self-care (01) ==
LOC: OID 07:58
PROVIDERS: ATTENDING PHYSICIAN Psychiatry & Neurology Neurology; FAMILY PHYSICIAN Family Medicine; OTHER PHYSICIAN Internal Medicine Endocrinology, Diabetes & Metabolism; OTHER PHYSICIAN Internal Medicine Rheumatology
DX: G25.82 Stiff-man syndrome (principal); G70.00 Myasthenia gravis without (acute) exacerbation; M32.9 Systemic lupus erythematosus, unspecified; D51.9 Vitamin B12 deficiency anemia, unspecified
CPT/HCPCS: 96365; 96366; 96367; 96413; J1569

== ENCOUNTER 2023-12-18 07:58 | Outpatient (RCR) | payer BC, SELFPAY ==
[2023-11-30 08:00] VITALS: BP 111/77
[2023-11-30] MEDS: TYLENOL 650 MG PO (08:29)
[2023-11-30] MEDS: NSS 250 IV (08:30)
[2023-11-30] MEDS: BENADRYL 50.5 MG IV (08:31)
[2023-11-30 09:10] VITALS: BP 112/76
[2023-11-30] MEDS: GAMMAGARD 50 IV (09:10)
[2023-11-30 09:40] VITALS: BP 112/76
[2023-11-30] MEDS: GAMMAGARD 300 IV (09:40)
[2023-11-30 10:10] VITALS: BP 114/78
[2023-11-30 10:40] VITALS: BP 114/72
[2023-11-30 10:55] VITALS: BP 114/72
[2023-12-01] MEDS: NSS 250 IV (08:49)
[2023-12-01] MEDS: TYLENOL 650 MG PO (08:50)
[2023-12-01] MEDS: BENADRYL 50.5 MG IV (08:51)
[2023-12-01 09:01] VITALS: BP 112/76
[2023-12-01] MEDS: GAMMAGARD 50 IV (09:21)
[2023-12-01 09:25] VITALS: BP 113/74
[2023-12-01 09:55] VITALS: BP 110/72
[2023-12-01] MEDS: GAMMAGARD 300 IV (09:56)
[2023-12-01 10:25] VITALS: BP 118/73
[2023-12-01 10:55] VITALS: BP 116/73
[2023-12-01 11:15] VITALS: BP 118/78
[2023-12-02 08:00] VITALS: BP 118/82
[2023-12-02] MEDS: NSS 250 IV (08:05)
[2023-12-02] MEDS: BENADRYL 50.5 MG IV (08:06)
[2023-12-02] MEDS: TYLENOL 650 MG PO (08:07)
[2023-12-02 08:32] VITALS: BP 118/79
[2023-12-02] MEDS: GAMMAGARD 50 IV (08:32)
[2023-12-02 09:00] VITALS: BP 114/79
[2023-12-02] MEDS: GAMMAGARD 300 IV (09:08)
[2023-12-02 09:30] VITALS: BP 111/75
[2023-12-02 10:00] VITALS: BP 112/77
[2023-12-02 10:20] VITALS: BP 117/81
[2023-12-03] MEDS: NSS 250 IV (08:09)
[2023-12-03] MEDS: BENADRYL 50.5 MG IV (08:10)
[2023-12-03] MEDS: TYLENOL 650 MG PO (08:11)
[2023-12-03 08:21] VITALS: BP 118/75
[2023-12-03] MEDS: GAMMAGARD 50 IV (08:42)
[2023-12-03 08:44] VITALS: BP 116/74
[2023-12-03 09:14] VITALS: BP 122/72
[2023-12-03] MEDS: GAMMAGARD 300 IV (09:16)
[2023-12-03 09:44] VITALS: BP 114/79
[2023-12-03 10:14] VITALS: BP 119/77
[2023-12-03 10:44] VITALS: BP 121/81
[2023-12-04] MEDS: NSS 250 IV (08:09)
[2023-12-04] MEDS: TYLENOL 650 MG PO (08:10)
[2023-12-04] MEDS: BENADRYL 50.5 MG IV (08:12)
[2023-12-04 08:26] VITALS: BP 125/74
[2023-12-04] MEDS: GAMMAGARD 50 IV (08:42)
[2023-12-04 08:46] VITALS: BP 111/77
[2023-12-04 09:16] VITALS: BP 115/71
[2023-12-04] MEDS: GAMMAGARD 300 IV (09:19)
[2023-12-04 09:46] VITALS: BP 117/79
[2023-12-04 10:16] VITALS: BP 110/77
[2023-12-04 10:46] VITALS: BP 116/78
[2023-12-14] MEDS: BENADRYL 50.5 MG IV (08:21)
[2023-12-14] MEDS: TYLENOL 650 MG PO (08:22)
[2023-12-14 08:48] VITALS: BP 111/71
[2023-12-14] MEDS: GAMMAGARD 50 IV (08:48)
[2023-12-14 09:00] VITALS: BP 113/74
[2023-12-14] MEDS: GAMMAGARD 300 IV (09:22)
[2023-12-14 09:30] VITALS: BP 114/71; BP 120/80
[2023-12-14 10:00] VITALS: BP 115/75
[2023-12-14 10:30] VITALS: BP 118/79
[2023-12-15 08:00] VITALS: BP 133/81
[2023-12-15] MEDS: TYLENOL 650 MG PO (08:21)
[2023-12-15] MEDS: BENADRYL 50.5 MG IV (08:22)
[2023-12-15] MEDS: GAMMAGARD 50 IV (08:54)
[2023-12-15 08:57] VITALS: BP 116/79
[2023-12-15 09:27] VITALS: BP 114/73
[2023-12-15] MEDS: GAMMAGARD 300 IV (09:31)
[2023-12-15 09:57] VITALS: BP 115/76
[2023-12-15 10:27] VITALS: BP 118/78
[2023-12-15 10:57] VITALS: BP 117/77
[2023-12-16 08:43] VITALS: BP 121/75
[2023-12-16] MEDS: TYLENOL 650 MG PO (08:45)
[2023-12-16] MEDS: BENADRYL 50.5 MG IV (08:54)
[2023-12-16] MEDS: GAMMAGARD 50 IV (09:24)
[2023-12-16 09:25] VITALS: BP 122/71
[2023-12-16] MEDS: GAMMAGARD 300 IV (09:58)
[2023-12-16 10:00] VITALS: BP 121/80
[2023-12-16 10:30] VITALS: BP 120/79
[2023-12-16 11:00] VITALS: BP 120/79
[2023-12-16 11:30] VITALS: BP 123/81
[2023-12-17] MEDS: TYLENOL 650 MG PO (08:08)
[2023-12-17] MEDS: BENADRYL 50.5 MG IV (08:12)
[2023-12-17] MEDS: NSS 250 IV (08:14)
[2023-12-17 08:19] VITALS: BP 123/73
[2023-12-17 08:36] VITALS: BP 120/77
[2023-12-17] MEDS: GAMMAGARD 50 IV (08:36)
[2023-12-17 09:06] VITALS: BP 118/78
[2023-12-17] MEDS: GAMMAGARD 300 IV (09:08)
[2023-12-17 09:36] VITALS: BP 115/77
[2023-12-17 10:06] VITALS: BP 115/77
[2023-12-17 10:25] VITALS: BP 118/78
[2023-12-18] MEDS: TYLENOL 650 MG PO (08:29)
[2023-12-18] MEDS: BENADRYL 50.5 MG IV (08:30)
[2023-12-18 08:41] VITALS: BP 114/78
[2023-12-18] MEDS: GAMMAGARD 50 IV (08:59)
[2023-12-18 09:02] VITALS: BP 115/72
[2023-12-18 09:32] VITALS: BP 118/73
[2023-12-18] MEDS: GAMMAGARD 300 IV (09:37)
[2023-12-18 10:02] VITALS: BP 116/74
[2023-12-18 10:32] VITALS: BP 115/74
[2023-12-18 10:55] VITALS: BP 116/74
== END 2023-12-26 23:59 | disposition home or self-care (01) ==
LOC: OID 07:58
PROVIDERS: ATTENDING PHYSICIAN Psychiatry & Neurology Neurology; FAMILY PHYSICIAN Family Medicine; OTHER PHYSICIAN Internal Medicine Endocrinology, Diabetes & Metabolism; OTHER PHYSICIAN Internal Medicine Rheumatology
DX: G25.82 Stiff-man syndrome (principal); G70.00 Myasthenia gravis without (acute) exacerbation; M32.9 Systemic lupus erythematosus, unspecified; D51.9 Vitamin B12 deficiency anemia, unspecified
CPT/HCPCS: 96365; 96366; 96367; J1569

== ENCOUNTER 2024-01-25 07:56 | Outpatient (RCR) | payer BC, SELFPAY ==
[2024-01-04 08:15] VITALS: BP 115/75
[2024-01-04] MEDS: NSS 250 IV (08:22)
[2024-01-04] MEDS: BENADRYL 50.5 MG IV (08:23)
[2024-01-04] MEDS: TYLENOL 650 MG PO (08:23)
[2024-01-04 08:50] VITALS: BP 110/68
[2024-01-04] MEDS: GAMMAGARD 50 IV (08:50)
[2024-01-04 09:00] VITALS: BP 105/63
[2024-01-04] MEDS: GAMMAGARD 300 IV (09:23)
[2024-01-04 09:30] VITALS: BP 128/67
[2024-01-04 10:00] VITALS: BP 109/72
[2024-01-04 10:30] VITALS: BP 109/74
[2024-01-05 08:35] VITALS: BP 120/83
[2024-01-05] MEDS: NSS 500 IV (08:51)
[2024-01-05 08:58] VITALS: BP 115/77
[2024-01-05] MEDS: GAMMAGARD 50 IV (08:58)
[2024-01-05 09:30] VITALS: BP 116/76
[2024-01-05] MEDS: GAMMAGARD 300 IV (09:32)
[2024-01-05 10:00] VITALS: BP 111/73
[2024-01-05 10:30] VITALS: BP 112/72
[2024-01-05 10:50] VITALS: BP 114/74
[2024-01-07] VITALS (7 sets, daily range): BP systolic 105–112; BP diastolic 70–76
[2024-01-07] MEDS: TYLENOL 650 MG PO (08:22)
[2024-01-07] MEDS: BENADRYL 50.5 MG IV (08:22)
[2024-01-07] MEDS: GAMMAGARD 50 IV (08:49)
[2024-01-07] MEDS: GAMMAGARD 200 IV (09:23)
[2024-01-07] MEDS: GAMMAGARD 300 IV (10:18)
[2024-01-08] VITALS (7 sets, daily range): BP systolic 116–124; BP diastolic 72–78
[2024-01-08] MEDS: TYLENOL 650 MG PO (08:03)
[2024-01-08] MEDS: BENADRYL 50.5 MG IV (08:14)
[2024-01-08] MEDS: GAMMAGARD 200 IV (08:38)
[2024-01-08] MEDS: GAMMAGARD 300 IV (09:54)
[2024-01-25] MEDS: BENADRYL 50.5 MG IV (08:13)
[2024-01-25] MEDS: TYLENOL 650 MG PO (08:14)
[2024-01-25 08:15] VITALS: BP 114/80
[2024-01-25 08:38] VITALS: BP 118/83
[2024-01-25] MEDS: GAMMAGARD 50 IV (08:38)
[2024-01-25 09:00] VITALS: BP 112/75
[2024-01-25] MEDS: GAMMAGARD 300 IV (09:13)
[2024-01-25 09:30] VITALS: BP 112/73
[2024-01-25 10:00] VITALS: BP 116/74
[2024-01-25 10:25] VITALS: BP 112/72
== END 2024-01-25 14:45 | disposition home or self-care (01) ==
LOC: OID 07:56
PROVIDERS: ATTENDING PHYSICIAN Psychiatry & Neurology Neurology; FAMILY PHYSICIAN Family Medicine; OTHER PHYSICIAN Internal Medicine Endocrinology, Diabetes & Metabolism; OTHER PHYSICIAN Internal Medicine Rheumatology
DX: G25.82 Stiff-man syndrome (principal); G70.00 Myasthenia gravis without (acute) exacerbation; M32.9 Systemic lupus erythematosus, unspecified; D51.9 Vitamin B12 deficiency anemia, unspecified
CPT/HCPCS: 96365; 96366; 96367; J1569

== ENCOUNTER 2024-02-19 07:59 | Outpatient (RCR) | payer BC, SELFPAY ==
[2024-01-26 08:00] VITALS: BP 127/78
[2024-01-26] MEDS: NSS 250 IV (08:07)
[2024-01-26] MEDS: BENADRYL 50.5 MG IV (08:08)
[2024-01-26] MEDS: TYLENOL 650 MG PO (08:09)
[2024-01-26 08:34] VITALS: BP 114/73
[2024-01-26] MEDS: GAMMAGARD 50 IV (08:34)
[2024-01-26 09:00] VITALS: BP 116/77
[2024-01-26] MEDS: GAMMAGARD 300 IV (09:10)
[2024-01-26 09:30] VITALS: BP 115/73
[2024-01-26 10:00] VITALS: BP 108/73
[2024-01-26 10:25] VITALS: BP 110/74
[2024-01-27] MEDS: TYLENOL 650 MG PO (08:26)
[2024-01-27] MEDS: BENADRYL 50.5 MG IV (08:27)
[2024-01-27 08:34] VITALS: BP 104/73
[2024-01-27 08:57] VITALS: BP 110/73
[2024-01-27] MEDS: GAMMAGARD 50 IV (08:57)
[2024-01-27 09:27] VITALS: BP 108/71
[2024-01-27] MEDS: GAMMAGARD 300 IV (09:27)
[2024-01-27 09:57] VITALS: BP 109/73
[2024-01-27 10:27] VITALS: BP 112/75
[2024-01-27 10:57] VITALS: BP 111/74
[2024-01-28] MEDS: NSS 250 IV (08:08)
[2024-01-28] MEDS: TYLENOL 650 MG PO (08:08)
[2024-01-28] MEDS: BENADRYL 50.5 MG IV (08:11)
[2024-01-28 08:28] VITALS: BP 115/74
[2024-01-28] MEDS: GAMMAGARD 50 IV (08:38)
[2024-01-28 08:43] VITALS: BP 113/76
[2024-01-28 09:13] VITALS: BP 114/73
[2024-01-28] MEDS: GAMMAGARD 300 IV (09:16)
[2024-01-28 09:43] VITALS: BP 116/78
[2024-01-28 10:13] VITALS: BP 108/73
[2024-01-28 10:43] VITALS: BP 113/72
[2024-01-29 08:00] VITALS: BP 115/73
[2024-01-29] MEDS: TYLENOL 650 MG PO (08:13)
[2024-01-29] MEDS: NSS 250 IV (08:17)
[2024-01-29] MEDS: BENADRYL 50.5 MG IV (08:17)
[2024-01-29] MEDS: GAMMAGARD 50 IV (08:41)
[2024-01-29 08:43] VITALS: BP 119/76
[2024-01-29 09:13] VITALS: BP 115/80
[2024-01-29] MEDS: GAMMAGARD 300 IV (09:17)
[2024-01-29 09:43] VITALS: BP 117/69
[2024-01-29 10:13] VITALS: BP 116/79
[2024-01-29 10:43] VITALS: BP 108/74
[2024-02-15] MEDS: TYLENOL 650 MG PO (08:23)
[2024-02-15] MEDS: BENADRYL 50.5 MG IV (08:25)
[2024-02-15 08:26] VITALS: BP 114/74
[2024-02-15 08:45] VITALS: BP 113/78
[2024-02-15] MEDS: GAMMAGARD 50 IV (08:45)
[2024-02-15 09:15] VITALS: BP 120/81
[2024-02-15] MEDS: GAMMAGARD 300 IV (09:22)
[2024-02-15 09:45] VITALS: BP 114/82
[2024-02-15 10:15] VITALS: BP 111/79
[2024-02-15 10:35] VITALS: BP 119/81
[2024-02-16 07:45] VITALS: BP 111/75
[2024-02-16] MEDS: NSS 250 IV ×2 (08:18→10:45)
[2024-02-16] MEDS: BENADRYL 50.5 MG IV (08:19)
[2024-02-16] MEDS: TYLENOL 650 MG PO (08:20)
[2024-02-16] MEDS: GAMMAGARD 50 IV (08:48)
[2024-02-16 08:53] VITALS: BP 114/74
[2024-02-16 09:23] VITALS: BP 116/77
[2024-02-16] MEDS: GAMMAGARD 300 IV (09:25)
[2024-02-16 09:53] VITALS: BP 114/67
[2024-02-16 10:23] VITALS: BP 112/75
[2024-02-16 10:53] VITALS: BP 112/69
[2024-02-17] MEDS: TYLENOL 650 MG PO (08:47)
[2024-02-17] MEDS: NSS 250 IV (08:49)
[2024-02-17] MEDS: BENADRYL 50.5 MG IV (08:50)
[2024-02-17 08:57] VITALS: BP 121/75
[2024-02-17] MEDS: GAMMAGARD 50 IV (09:18)
[2024-02-17 09:20] VITALS: BP 121/75
[2024-02-17 09:25] VITALS: BP 121/75
[2024-02-17] MEDS: GAMMAGARD 300 IV (09:56)
[2024-02-17 10:13] VITALS: BP 120/81
[2024-02-17 10:43] VITALS: BP 115/76
[2024-02-17 11:13] VITALS: BP 113/75
[2024-02-18] MEDS: NSS 250 IV (08:15)
[2024-02-18] MEDS: TYLENOL 650 MG PO (08:17)
[2024-02-18] MEDS: BENADRYL 50.5 MG IV (08:19)
[2024-02-18 08:26] VITALS: BP 122/77
[2024-02-18] MEDS: GAMMAGARD 50 IV (08:49)
[2024-02-18 08:52] VITALS: BP 117/78
[2024-02-18 09:22] VITALS: BP 107/73
[2024-02-18] MEDS: GAMMAGARD 300 IV (09:24)
[2024-02-18 09:52] VITALS: BP 110/75
[2024-02-18 10:22] VITALS: BP 115/75
[2024-02-18 10:52] VITALS: BP 117/75
[2024-02-19] MEDS: NSS 250 IV (08:21)
[2024-02-19] MEDS: TYLENOL 650 MG PO (08:22)
[2024-02-19] MEDS: BENADRYL 50.5 MG IV (08:23)
[2024-02-19 08:29] VITALS: BP 117/84
[2024-02-19 08:52] VITALS: BP 119/80
[2024-02-19] MEDS: GAMMAGARD 50 IV (08:52)
[2024-02-19 09:22] VITALS: BP 116/80
[2024-02-19] MEDS: GAMMAGARD 300 IV (09:26)
[2024-02-19 09:52] VITALS: BP 112/79
[2024-02-19 10:22] VITALS: BP 122/82
[2024-02-19 10:52] VITALS: BP 123/83
== END 2024-02-22 10:00 | disposition home or self-care (01) ==
LOC: OID 07:59
PROVIDERS: ATTENDING PHYSICIAN Psychiatry & Neurology Neurology; FAMILY PHYSICIAN Family Medicine; OTHER PHYSICIAN Internal Medicine Endocrinology, Diabetes & Metabolism; OTHER PHYSICIAN Internal Medicine Rheumatology
DX: G25.82 Stiff-man syndrome (principal); G70.00 Myasthenia gravis without (acute) exacerbation; M32.9 Systemic lupus erythematosus, unspecified; D51.9 Vitamin B12 deficiency anemia, unspecified
CPT/HCPCS: 96361; 96365; 96366; 96367; J1569

== ENCOUNTER 2024-03-11 07:58 | Outpatient (RCR) | payer BC, SELFPAY ==
[2024-03-07 08:10] VITALS: BP 126/76
[2024-03-07] MEDS: BENADRYL 50.5 MG IV (08:25)
[2024-03-07] MEDS: NSS 250 IV (08:25)
[2024-03-07] MEDS: TYLENOL 650 MG PO (08:26)
[2024-03-07] MEDS: GAMMAGARD 50 IV (08:54)
[2024-03-07 08:55] VITALS: BP 117/75
[2024-03-07 09:25] VITALS: BP 120/74
[2024-03-07] MEDS: GAMMAGARD 300 IV (09:26)
[2024-03-07 09:55] VITALS: BP 118/76
[2024-03-07 10:25] VITALS: BP 116/76
[2024-03-07 10:35] VITALS: BP 111/69
[2024-03-08 08:00] VITALS: BP 112/70
[2024-03-08] MEDS: BENADRYL 50.5 MG IV (08:09)
[2024-03-08] MEDS: TYLENOL 650 MG PO (08:10)
[2024-03-08] MEDS: NSS 250 IV (08:11)
[2024-03-08 08:37] VITALS: BP 115/77
[2024-03-08] MEDS: GAMMAGARD 50 IV (08:37)
[2024-03-08 09:00] VITALS: BP 108/77
[2024-03-08] MEDS: GAMMAGARD 300 IV (09:09)
[2024-03-08 09:30] VITALS: BP 112/76
[2024-03-08 10:00] VITALS: BP 112/77
[2024-03-08 10:20] VITALS: BP 121/79
[2024-03-09 08:00] VITALS: BP 118/86
[2024-03-09] MEDS: NSS 250 IV (08:08)
[2024-03-09] MEDS: BENADRYL 50.5 MG IV (08:09)
[2024-03-09] MEDS: TYLENOL 650 MG PO (08:10)
[2024-03-09 08:35] VITALS: BP 118/86
[2024-03-09] MEDS: GAMMAGARD 50 IV (08:35)
[2024-03-09 09:00] VITALS: BP 111/77
[2024-03-09] MEDS: GAMMAGARD 300 IV (09:11)
[2024-03-09 09:30] VITALS: BP 117/76
[2024-03-09 10:00] VITALS: BP 113/76
[2024-03-09 10:25] VITALS: BP 117/80
[2024-03-10] MEDS: NSS 250 IV (08:16)
[2024-03-10] MEDS: BENADRYL 50.5 MG IV (08:17)
[2024-03-10] MEDS: TYLENOL 650 MG PO (08:18)
[2024-03-10 08:24] VITALS: BP 121/78
[2024-03-10] MEDS: GAMMAGARD 50 IV (08:46)
[2024-03-10 08:51] VITALS: BP 119/68
[2024-03-10 09:21] VITALS: BP 123/72
[2024-03-10] MEDS: GAMMAGARD 300 IV (09:23)
[2024-03-10 09:51] VITALS: BP 123/76
[2024-03-10 10:21] VITALS: BP 111/71
[2024-03-10 10:51] VITALS: BP 116/75
[2024-03-11] VITALS (7 sets, daily range): BP systolic 112–121; BP diastolic 68–83
[2024-03-11] MEDS: TYLENOL 650 MG PO (08:13)
[2024-03-11] MEDS: BENADRYL 50.5 MG IV (08:14)
[2024-03-11] MEDS: NSS 250 IV (08:17)
[2024-03-11] MEDS: GAMMAGARD 50 IV (08:42)
[2024-03-11] MEDS: GAMMAGARD 300 IV (09:23)
== END 2024-03-14 08:38 | disposition home or self-care (01) ==
LOC: OID 07:58
PROVIDERS: ATTENDING PHYSICIAN Psychiatry & Neurology Neurology; FAMILY PHYSICIAN Family Medicine; OTHER PHYSICIAN Internal Medicine Endocrinology, Diabetes & Metabolism; OTHER PHYSICIAN Internal Medicine Rheumatology
DX: G25.82 Stiff-man syndrome (principal); G70.00 Myasthenia gravis without (acute) exacerbation; M32.9 Systemic lupus erythematosus, unspecified; D51.9 Vitamin B12 deficiency anemia, unspecified
CPT/HCPCS: 96365; 96366; 96367; J1569

== ENCOUNTER 2024-04-15 07:59 | Outpatient (RCR) | payer BC, SELFPAY ==
[2024-03-28] MEDS: TYLENOL 650 MG PO (09:01)
[2024-03-28] MEDS: BENADRYL 50.5 MG IV (09:01)
[2024-03-28] MEDS: NSS 250 IV (09:03)
[2024-03-28 09:12] VITALS: BP 125/82
[2024-03-28] MEDS: GAMMAGARD 50 IV (09:35)
[2024-03-28 09:36] VITALS: BP 115/81
[2024-03-28 10:06] VITALS: BP 108/73
[2024-03-28] MEDS: GAMMAGARD 300 IV (10:06)
[2024-03-28 10:36] VITALS: BP 114/78
[2024-03-28 11:06] VITALS: BP 116/77
[2024-03-28 11:36] VITALS: BP 110/78
[2024-03-29] MEDS: NSS 250 IV (08:20)
[2024-03-29] MEDS: TYLENOL 650 MG PO (08:20)
[2024-03-29] MEDS: BENADRYL 50.5 MG IV (08:21)
[2024-03-29 08:28] VITALS: BP 115/85
[2024-03-29] MEDS: GAMMAGARD 50 IV (09:01)
[2024-03-29 09:05] VITALS: BP 117/82
[2024-03-29 09:35] VITALS: BP 119/84
[2024-03-29] MEDS: GAMMAGARD 300 IV (09:41)
[2024-03-29 10:05] VITALS: BP 118/86
[2024-03-29 10:35] VITALS: BP 125/83
[2024-03-29 10:55] VITALS: BP 123/83
[2024-03-30] MEDS: TYLENOL 650 MG PO (08:07)
[2024-03-30] MEDS: BENADRYL 50.5 MG IV (08:07)
[2024-03-30] MEDS: NSS 250 IV (08:08)
[2024-03-30 08:18] VITALS: BP 114/76
[2024-03-30] MEDS: GAMMAGARD 50 IV (08:39)
[2024-03-30 08:43] VITALS: BP 114/76
[2024-03-30 09:13] VITALS: BP 114/75
[2024-03-30] MEDS: GAMMAGARD 300 IV (09:19)
[2024-03-30 09:43] VITALS: BP 114/73
[2024-03-30 10:13] VITALS: BP 110/78
[2024-03-30 10:43] VITALS: BP 117/80
[2024-03-31 08:00] VITALS: BP 118/79
[2024-03-31] MEDS: TYLENOL 650 MG PO (08:12)
[2024-03-31] MEDS: BENADRYL 50.5 MG IV (08:13)
[2024-03-31] MEDS: NSS 250 IV (08:14)
[2024-03-31] MEDS: GAMMAGARD 50 IV (08:48)
[2024-03-31 08:49] VITALS: BP 115/79
[2024-03-31 09:19] VITALS: BP 111/80
[2024-03-31] MEDS: GAMMAGARD 300 IV (09:23)
[2024-03-31 09:49] VITALS: BP 115/80
[2024-03-31 10:19] VITALS: BP 115/82
[2024-03-31 10:40] VITALS: BP 121/86
[2024-04-01] MEDS: NSS 250 IV (08:01)
[2024-04-01] MEDS: TYLENOL 650 MG PO (08:02)
[2024-04-01] MEDS: BENADRYL 50.5 MG IV (08:07)
[2024-04-01 08:09] VITALS: BP 127/83
[2024-04-01] MEDS: GAMMAGARD 50 IV (08:34)
[2024-04-01 08:35] VITALS: BP 124/84
[2024-04-01] MEDS: GAMMAGARD 300 IV (09:09)
[2024-04-01 09:10] VITALS: BP 119/80
[2024-04-01 09:40] VITALS: BP 116/79
[2024-04-01 10:10] VITALS: BP 126/86
[2024-04-01 10:25] VITALS: BP 126/85
[2024-04-11 07:45] VITALS: BP 118/74
[2024-04-11] MEDS: TYLENOL 650 MG PO (08:28)
[2024-04-11] MEDS: BENADRYL 50.5 MG IV (08:29)
[2024-04-11] MEDS: NSS 250 IV (08:30)
[2024-04-11] MEDS: GAMMAGARD 50 IV (08:59)
[2024-04-11 09:03] VITALS: BP 107/70
[2024-04-11 09:33] VITALS: BP 102/72
[2024-04-11] MEDS: GAMMAGARD 300 IV (09:38)
[2024-04-11 10:03] VITALS: BP 105/71
[2024-04-11 10:33] VITALS: BP 112/73
[2024-04-11 11:03] VITALS: BP 108/73
[2024-04-12] MEDS: TYLENOL 650 MG PO (08:10)
[2024-04-12] MEDS: BENADRYL 50.5 MG IV (08:12)
[2024-04-12] MEDS: NSS 250 IV (08:13)
[2024-04-12 08:22] VITALS: BP 117/76
[2024-04-12] MEDS: GAMMAGARD 50 IV (08:48)
[2024-04-12 08:49] VITALS: BP 113/70
[2024-04-12 09:19] VITALS: BP 109/73
[2024-04-12] MEDS: GAMMAGARD 300 IV (09:30)
[2024-04-12 09:49] VITALS: BP 105/73
[2024-04-12 10:19] VITALS: BP 113/70
[2024-04-12 10:49] VITALS: BP 107/75
[2024-04-13] MEDS: TYLENOL 650 MG PO (07:59)
[2024-04-13] MEDS: BENADRYL 50.5 MG IV (08:01)
[2024-04-13] MEDS: NSS 250 IV (08:02)
[2024-04-13 08:08] VITALS: BP 117/71
[2024-04-13] MEDS: GAMMAGARD 50 IV (08:29)
[2024-04-13 08:31] VITALS: BP 106/73
[2024-04-13 09:01] VITALS: BP 111/71
[2024-04-13] MEDS: GAMMAGARD 300 IV (09:26)
[2024-04-13 09:31] VITALS: BP 106/70
[2024-04-13 10:01] VITALS: BP 126/74
[2024-04-13 10:31] VITALS: BP 117/76
[2024-04-14] MEDS: TYLENOL 650 MG PO (08:00)
[2024-04-14] MEDS: BENADRYL 50.5 MG IV (08:02)
[2024-04-14] MEDS: NSS 250 IV (08:03)
[2024-04-14 08:10] VITALS: BP 124/80
[2024-04-14] MEDS: GAMMAGARD 50 IV (08:35)
[2024-04-14 08:38] VITALS: BP 115/76
[2024-04-14 09:08] VITALS: BP 109/75
[2024-04-14] MEDS: GAMMAGARD 300 IV (09:14)
[2024-04-14 09:38] VITALS: BP 113/82
[2024-04-14 10:08] VITALS: BP 118/78
[2024-04-14 10:40] VITALS: BP 118/83
[2024-04-15] VITALS (7 sets, daily range): BP systolic 106–134; BP diastolic 72–82
[2024-04-15] MEDS: NSS 250 IV (08:19)
[2024-04-15] MEDS: TYLENOL 650 MG PO (08:20)
[2024-04-15] MEDS: BENADRYL 50.5 MG IV (08:21)
[2024-04-15] MEDS: GAMMAGARD 50 IV (08:48)
[2024-04-15] MEDS: GAMMAGARD 300 IV (09:24)
== END 2024-04-18 10:16 | disposition home or self-care (01) ==
LOC: OID 07:59
PROVIDERS: ATTENDING PHYSICIAN Psychiatry & Neurology Neurology; FAMILY PHYSICIAN Family Medicine; OTHER PHYSICIAN Internal Medicine Endocrinology, Diabetes & Metabolism; OTHER PHYSICIAN Internal Medicine Rheumatology
DX: G25.82 Stiff-man syndrome (principal); G70.00 Myasthenia gravis without (acute) exacerbation; M32.9 Systemic lupus erythematosus, unspecified; D51.9 Vitamin B12 deficiency anemia, unspecified
CPT/HCPCS: 96365; 96366; 96367; J1569

== ENCOUNTER 2024-05-09 07:59 | Outpatient (RCR) | payer BC, SELFPAY ==
[2024-05-02] MEDS: NSS 250 IV (08:13)
[2024-05-02] MEDS: TYLENOL 650 MG PO (08:14)
[2024-05-02] MEDS: BENADRYL 50.5 MG IV (08:15)
[2024-05-02 08:21] VITALS: BP 120/78
[2024-05-02] MEDS: GAMMAGARD 50 IV (08:43)
[2024-05-02 08:46] VITALS: BP 111/77
[2024-05-02 09:16] VITALS: BP 109/76
[2024-05-02] MEDS: GAMMAGARD 300 IV (09:22)
[2024-05-02 09:46] VITALS: BP 109/75
[2024-05-02 10:16] VITALS: BP 106/79
[2024-05-02 10:46] VITALS: BP 118/80
[2024-05-03] MEDS: TYLENOL 650 MG PO (08:10)
[2024-05-03] MEDS: BENADRYL 50.5 MG IV (08:12)
[2024-05-03] MEDS: NSS 250 IV (08:13)
[2024-05-03] MEDS: GAMMAGARD 50 IV (08:44)
[2024-05-03 08:48] VITALS: BP 120/78
[2024-05-03] MEDS: GAMMAGARD 300 IV (09:21)
[2024-05-03 10:48] VITALS: BP 118/78
--- NOTE | 2024-05-03 11:35 | PTCARENOTE ---
Titration VS inadvertently erased by associate. Pt tolerated infusion well. Ending VS within normal limits.
[2024-05-04 07:50] VITALS: BP 117/77
[2024-05-04] MEDS: TYLENOL 650 MG PO (08:19)
[2024-05-04] MEDS: BENADRYL 50.5 MG IV (08:20)
[2024-05-04] MEDS: NSS 250 IV (08:21)
[2024-05-04] MEDS: GAMMAGARD 50 IV (08:52)
[2024-05-04 08:56] VITALS: BP 116/86
[2024-05-04 09:23] VITALS: BP 129/85
[2024-05-04] MEDS: GAMMAGARD 300 IV (09:27)
[2024-05-04 09:53] VITALS: BP 111/80
[2024-05-04 10:23] VITALS: BP 113/79
[2024-05-04 10:53] VITALS: BP 115/80
[2024-05-06 07:50] VITALS: BP 127/87
[2024-05-06] MEDS: TYLENOL 650 MG PO (08:08)
[2024-05-06] MEDS: BENADRYL 50.5 MG IV (08:09)
[2024-05-06] MEDS: NSS 250 IV (08:09)
[2024-05-06] MEDS: GAMMAGARD 50 IV (08:39)
[2024-05-06 08:41] VITALS: BP 124/79
[2024-05-06 09:11] VITALS: BP 127/77
[2024-05-06] MEDS: GAMMAGARD 300 IV (09:14)
[2024-05-06 09:41] VITALS: BP 122/75
[2024-05-06 10:11] VITALS: BP 117/73
[2024-05-06 10:41] VITALS: BP 116/81
[2024-05-09] MEDS: TYLENOL 650 MG PO (08:21)
[2024-05-09] MEDS: NSS 250 IV (08:22)
[2024-05-09] MEDS: BENADRYL 50.5 MG IV (08:23)
[2024-05-09 08:36] VITALS: BP 118/73
[2024-05-09 08:53] VITALS: BP 114/75
[2024-05-09] MEDS: GAMMAGARD 50 IV (08:53)
[2024-05-09 09:23] VITALS: BP 110/73
[2024-05-09] MEDS: GAMMAGARD 300 IV (09:26)
[2024-05-09 09:53] VITALS: BP 110/72
[2024-05-09 10:23] VITALS: BP 106/76
[2024-05-09 10:40] VITALS: BP 112/85
== END 2024-05-25 12:47 | disposition home or self-care (01) ==
LOC: OID 07:59
PROVIDERS: ATTENDING PHYSICIAN Psychiatry & Neurology Neurology; FAMILY PHYSICIAN Family Medicine; OTHER PHYSICIAN Internal Medicine Endocrinology, Diabetes & Metabolism; OTHER PHYSICIAN Internal Medicine Rheumatology
DX: G25.82 Stiff-man syndrome (principal); G70.00 Myasthenia gravis without (acute) exacerbation; M32.9 Systemic lupus erythematosus, unspecified; D51.9 Vitamin B12 deficiency anemia, unspecified
CPT/HCPCS: 96365; 96366; 96367; J1569

== ENCOUNTER → 2024-06-14 11:54 | Outpatient (REF) | payer BC, SELFPAY | LOC: MRI 3T 11:54 | PROVIDERS: ATTENDING PHYSICIAN Nurse Practitioner Family | DX: M48.02 Spinal stenosis, cervical region (principal); R53.1 Weakness | CPT/HCPCS: 72156 ==

== ENCOUNTER 2024-06-24 07:49 | Outpatient (RCR) | payer BC, SELFPAY ==
[2024-05-30 09:00] VITALS: BP 115/74
[2024-05-30] MEDS: TYLENOL 650 MG PO (09:27)
[2024-05-30] MEDS: NSS 250 IV (09:28)
[2024-05-30] MEDS: BENADRYL 50.5 MG IV (09:29)
[2024-05-30] MEDS: GAMMAGARD 50 IV (09:58)
[2024-05-30 10:01] VITALS: BP 105/76
[2024-05-30 10:31] VITALS: BP 110/75
[2024-05-30] MEDS: GAMMAGARD 300 IV (10:37)
[2024-05-30 11:01] VITALS: BP 109/81
[2024-05-30 11:31] VITALS: BP 106/77
[2024-05-30 12:01] VITALS: BP 113/72
[2024-05-31 08:00] VITALS: BP 121/78
[2024-05-31] MEDS: TYLENOL 650 MG PO (08:11)
[2024-05-31] MEDS: BENADRYL 50.5 MG IV (08:12)
[2024-05-31] MEDS: NSS 250 IV (08:13)
[2024-05-31] MEDS: GAMMAGARD 50 IV (08:42)
[2024-05-31 08:46] VITALS: BP 118/72
[2024-05-31 09:16] VITALS: BP 110/75
[2024-05-31] MEDS: GAMMAGARD 300 IV (09:19)
[2024-05-31 09:46] VITALS: BP 109/78
[2024-05-31 10:16] VITALS: BP 109/75
[2024-05-31 10:46] VITALS: BP 108/82
[2024-06-01] MEDS: TYLENOL 650 MG PO (08:11)
[2024-06-01] MEDS: NSS 250 IV (08:12)
[2024-06-01] MEDS: BENADRYL 50.5 MG IV (08:12)
[2024-06-01] MEDS: GAMMAGARD 50 IV (08:41)
[2024-06-01 08:45] VITALS: BP 107/76
[2024-06-01 08:53] VITALS: BP 109/71
[2024-06-01 09:15] VITALS: BP 112/79
[2024-06-01] MEDS: GAMMAGARD 300 IV (09:19)
[2024-06-01 09:45] VITALS: BP 106/69
[2024-06-01 10:15] VITALS: BP 109/77
[2024-06-01 10:45] VITALS: BP 108/74
[2024-06-02] MEDS: TYLENOL 650 MG PO (08:48)
[2024-06-02] MEDS: BENADRYL 50.5 MG IV (08:50)
[2024-06-02] MEDS: NSS 250 IV (08:51)
[2024-06-02 09:24] VITALS: BP 113/78
[2024-06-02] MEDS: GAMMAGARD 50 IV (09:24)
[2024-06-02 09:54] VITALS: BP 112/76
[2024-06-02] MEDS: GAMMAGARD 300 IV (10:02)
[2024-06-02 10:24] VITALS: BP 110/76
[2024-06-02 10:54] VITALS: BP 110/73
[2024-06-02 11:25] VITALS: BP 112/74
[2024-06-03] MEDS: NSS 250 IV (08:15)
[2024-06-03] MEDS: TYLENOL 650 MG PO (08:16)
[2024-06-03] MEDS: BENADRYL 50.5 MG IV (08:17)
[2024-06-03 08:34] VITALS: BP 116/77
[2024-06-03] MEDS: GAMMAGARD 50 IV (08:47)
[2024-06-03 08:48] VITALS: BP 108/74
[2024-06-03 09:18] VITALS: BP 124/81
[2024-06-03] MEDS: GAMMAGARD 300 IV (09:23)
[2024-06-03 09:48] VITALS: BP 118/77
[2024-06-03 10:18] VITALS: BP 118/75
[2024-06-03 10:48] VITALS: BP 109/74
[2024-06-20] MEDS: NSS 250 IV (09:00)
[2024-06-20] MEDS: TYLENOL 650 MG PO (09:00)
[2024-06-20] MEDS: BENADRYL 50.5 MG IV (09:01)
[2024-06-20 09:03] LABS: % Basophils 0.4 % (0-2); % Eosinophils 1.8 % (0-6); % Immature Granulocytes 0.2 % (0-0.5); % Lymphocytes 27.7 % (20.5-51.1); % Neutrophils 60.9 % (42.2-75.2); Absolute Eosinophils 0.1 10^3/uL (0-0.7); Absolute Lymphocytes 1.4 10^3/uL (1.2-3.4); Absolute Monocytes 0.4 10^3/uL (0.1-0.6); Hematocrit 39.4 % (37.0-47.0); Hemoglobin 14.2 g/dL (12.0-16.0); Mean Platelet Volume 10.4 fL (7.4-10.4); Platelet Count 421 10^3/uL (130-400); Red Blood Cell Count 3.94 10^6/uL (4.20-5.40); White Blood Cell Count 4.9 10^3/uL (4.8-10.8)
[2024-06-20 09:12] VITALS: BP 100/62
[2024-06-20] MEDS: GAMMAGARD 300 IV (09:30)
[2024-06-20 09:33] VITALS: BP 102/68
[2024-06-20 10:03] VITALS: BP 101/63
[2024-06-20 10:33] VITALS: BP 96/63
[2024-06-20 10:51] LABS: ALT (SGPT) 41 U/L (0-35); AST (SGOT) 46 U/L (14-36); Albumin 3.8 g/dl (3.5-5.0); Alkaline Phosphatase 81 U/L (38-126); Blood Urea Nitrogen 5 mg/dl (7-17); Calcium 9.6 mg/dl (8.4-10.2); Carbon Dioxide 23 mmol/L (22-30); Chloride 101 mmol/L (98-107); Glucose 94 mg/dl (70-99); HDL Cholesterol 39 mg/dl; LDL Cholesterol, Calculated 163 mg/dl; Potassium 3.9 mmol/L (3.5-5.1); Sodium 135 mmol/L (135-145); Total Cholesterol 222 mg/dl (50-199); Total Protein 7.7 g/dl (6.3-8.2); Triglyceride 100 mg/dl (10-149); Very Low Density Lipoprotein 20 mg/dl (0-30); eGFR > 60.00
[2024-06-20 11:05] VITALS: BP 94/67
[2024-06-20 11:06] LABS: Free T3 3.71 pg/ml (2.77-5.27)
[2024-06-20 11:22] LABS: TSH Reflex To Free T4 1.25 uIU/ml (0.47-4.68)
[2024-06-20 11:56] LABS: Folate 2.3 ng/ml (2.76-20); Vitamin B12 752 pg/ml (239-931)
[2024-06-21] MEDS: TYLENOL 650 MG PO (10:02)
[2024-06-21] MEDS: BENADRYL 50.5 MG IV (10:03)
[2024-06-21] MEDS: NSS 250 IV (10:03)
[2024-06-21] MEDS: GAMMAGARD 300 IV (10:28)
[2024-06-21 10:31] VITALS: BP 102/65
[2024-06-21 11:01] VITALS: BP 108/74
[2024-06-21 11:31] VITALS: BP 104/68
[2024-06-21 12:01] VITALS: BP 103/68
[2024-06-22] MEDS: TYLENOL 650 MG PO (08:35)
[2024-06-22] MEDS: NSS 250 IV (08:36)
[2024-06-22] MEDS: BENADRYL 50.5 MG IV (08:36)
[2024-06-22] MEDS: GAMMAGARD 300 IV (09:03)
[2024-06-22 09:07] VITALS: BP 117/71
[2024-06-22 09:37] VITALS: BP 107/72
[2024-06-22 10:00] VITALS: BP 106/71
[2024-06-22 10:07] VITALS: BP 103/74
[2024-06-22 10:37] VITALS: BP 110/75
[2024-06-23 07:50] VITALS: BP 102/72
[2024-06-23] MEDS: TYLENOL 650 MG PO (08:06)
[2024-06-23] MEDS: NSS 250 IV (08:08)
[2024-06-23] MEDS: BENADRYL 50.5 MG IV (08:09)
[2024-06-23 08:39] VITALS: BP 108/72
[2024-06-23] MEDS: GAMMAGARD 300 IV (08:39)
[2024-06-23 09:09] VITALS: BP 116/72
[2024-06-23 09:39] VITALS: BP 114/74
[2024-06-23 10:09] VITALS: BP 111/71
[2024-06-23 10:39] VITALS: BP 112/74
[2024-06-24] MEDS: TYLENOL 650 MG PO (08:02)
[2024-06-24] MEDS: NSS 250 IV (08:03)
[2024-06-24] MEDS: BENADRYL 50.5 MG IV (08:09)
[2024-06-24] MEDS: GAMMAGARD 300 IV (08:39)
[2024-06-24 08:43] VITALS: BP 109/69
[2024-06-24 08:53] VITALS: BP 104/68
[2024-06-24 09:13] VITALS: BP 100/64
[2024-06-24 09:43] VITALS: BP 99/66
[2024-06-24 10:13] VITALS: BP 105/69
[2024-06-24 10:22] VITALS: BP 104/71
== END 2024-06-24 23:59 | disposition home or self-care (01) ==
LOC: OID 07:49
PROVIDERS: ATTENDING PHYSICIAN Psychiatry & Neurology Neurology; FAMILY PHYSICIAN Family Medicine; OTHER PHYSICIAN Internal Medicine Endocrinology, Diabetes & Metabolism; OTHER PHYSICIAN Internal Medicine Rheumatology; OTHER PHYSICIAN Nurse Practitioner Family
DX: G25.82 Stiff-man syndrome (principal); G70.00 Myasthenia gravis without (acute) exacerbation; M32.9 Systemic lupus erythematosus, unspecified; D51.9 Vitamin B12 deficiency anemia, unspecified
CPT/HCPCS: 80053; 80061; 82607; 82746; 84443; 84481; 85025; 96365; 96366; 96367; J1569

== ENCOUNTER 2024-07-15 07:51 | Outpatient (RCR) | payer BC, SELFPAY ==
[2024-07-11] MEDS: NSS 250 IV (08:10)
[2024-07-11] MEDS: TYLENOL 650 MG PO (08:12)
[2024-07-11] MEDS: BENADRYL 50.5 MG IV (08:14)
[2024-07-11 08:23] VITALS: BP 105/51
[2024-07-11] MEDS: GAMMAGARD 300 IV (08:45)
[2024-07-11 08:48] VITALS: BP 99/66
[2024-07-11 09:18] VITALS: BP 99/65
[2024-07-11 09:48] VITALS: BP 97/65
[2024-07-11 10:18] VITALS: BP 104/71
[2024-07-11 10:48] VITALS: BP 99/71
[2024-07-12] MEDS: TYLENOL 650 MG PO (08:04)
[2024-07-12] MEDS: NSS 250 IV (08:04)
[2024-07-12] MEDS: BENADRYL 50.5 MG IV (08:10)
[2024-07-12] MEDS: GAMMAGARD 300 IV (08:38)
[2024-07-12 08:41] VITALS: BP 100/71
[2024-07-12 09:11] VITALS: BP 107/73
[2024-07-12 09:41] VITALS: BP 100/68
[2024-07-12 10:11] VITALS: BP 105/72
[2024-07-12 10:20] VITALS: BP 101/71
[2024-07-12 11:55] VITALS: BP 102/66
[2024-07-13] MEDS: NSS 250 IV (08:11)
[2024-07-13] MEDS: TYLENOL 650 MG PO (08:11)
[2024-07-13] MEDS: BENADRYL 50.5 MG IV (08:12)
[2024-07-13] MEDS: GAMMAGARD 300 IV (08:42)
[2024-07-13 08:48] VITALS: BP 107/72
[2024-07-13 08:55] VITALS: BP 106/73
[2024-07-13 09:18] VITALS: BP 109/73
[2024-07-13 09:48] VITALS: BP 103/66
[2024-07-13 10:18] VITALS: BP 103/70
[2024-07-13 10:30] VITALS: BP 107/71
[2024-07-14 09:15] VITALS: BP 106/75
[2024-07-14] MEDS: NSS 250 IV (09:24)
[2024-07-14] MEDS: TYLENOL 650 MG PO (09:26)
[2024-07-14] MEDS: BENADRYL 50.5 MG IV (09:27)
[2024-07-14] MEDS: GAMMAGARD 300 IV (10:05)
[2024-07-14 10:08] VITALS: BP 103/71
[2024-07-14 10:38] VITALS: BP 110/72
[2024-07-14 11:08] VITALS: BP 99/67
[2024-07-14 11:38] VITALS: BP 104/71
[2024-07-14 11:50] VITALS: BP 102/71
[2024-07-15] MEDS: NSS 250 IV (08:11)
[2024-07-15] MEDS: TYLENOL 650 MG PO (08:12)
[2024-07-15] MEDS: BENADRYL 50.5 MG IV (08:13)
[2024-07-15 08:32] VITALS: BP 112/69
[2024-07-15] MEDS: GAMMAGARD 300 IV (08:44)
[2024-07-15 08:50] VITALS: BP 102/65
[2024-07-15 09:20] VITALS: BP 106/75
[2024-07-15 09:50] VITALS: BP 111/75
[2024-07-15 10:20] VITALS: BP 105/68
== END 2024-07-18 08:19 | disposition home or self-care (01) ==
LOC: OID 07:51
PROVIDERS: ATTENDING PHYSICIAN Psychiatry & Neurology Neurology; FAMILY PHYSICIAN Family Medicine; OTHER PHYSICIAN Internal Medicine Endocrinology, Diabetes & Metabolism; OTHER PHYSICIAN Internal Medicine Rheumatology; OTHER PHYSICIAN Nurse Practitioner Family
DX: G25.82 Stiff-man syndrome (principal); G70.00 Myasthenia gravis without (acute) exacerbation; M32.9 Systemic lupus erythematosus, unspecified; D51.9 Vitamin B12 deficiency anemia, unspecified
CPT/HCPCS: 96365; 96366; 96367; J1569

== ENCOUNTER → 2024-07-25 12:21 | Outpatient (REF) | payer BC, SELFPAY | LOC: RAD 12:21 | PROVIDERS: ATTENDING PHYSICIAN Specialist; FAMILY PHYSICIAN Family Medicine | DX: R19.4 Change in bowel habit (principal); R63.4 Abnormal weight loss | CPT/HCPCS: 74177; Q9967 ==

== ENCOUNTER 2024-08-24 07:45 | Outpatient (RCR) | payer BC, SELFPAY ==
[2024-08-01 08:09] VITALS: BP 103/70
[2024-08-01] MEDS: TYLENOL 650 MG PO (08:27)
[2024-08-01] MEDS: BENADRYL 50.5 MG IV (08:31)
[2024-08-01] MEDS: NSS 250 IV (08:37)
[2024-08-01] MEDS: GAMMAGARD 300 IV (09:09)
[2024-08-01 09:10] VITALS: BP 93/58
[2024-08-01 09:30] VITALS: BP 96/57
[2024-08-01 10:00] VITALS: BP 97/64
[2024-08-01 10:30] VITALS: BP 103/64
[2024-08-01 11:00] VITALS: BP 92/63
[2024-08-02] MEDS: NSS 250 IV (08:17)
[2024-08-02] MEDS: BENADRYL 50.5 MG IV (08:18)
[2024-08-02] MEDS: TYLENOL 650 MG PO (08:18)
[2024-08-02 08:29] VITALS: BP 120/75
[2024-08-02] MEDS: GAMMAGARD 300 IV (08:52)
[2024-08-02 08:53] VITALS: BP 110/70
[2024-08-02 09:23] VITALS: BP 101/66
[2024-08-02 09:53] VITALS: BP 106/65
[2024-08-02 10:23] VITALS: BP 110/69
[2024-08-02 10:53] VITALS: BP 109/68
--- NOTE | 2024-08-05 11:18 | PTCARENOTE ---
1000- pt cancelled scheduled IVIG treatment of 08/03, 08/04, and 08/05. pt 'has GI bug, fever and chills'. Pt came in today wearing a mask, sub q port flushed per protocol and de-accessed. Pt will return on Thursday if not symptomatic to complete IVIG
course. Spoke with Dr. Vicente, orders obtained.
[2024-08-08] MEDS: TYLENOL 650 MG PO (08:22)
[2024-08-08] MEDS: NSS 250 IV (08:22)
[2024-08-08] MEDS: BENADRYL 50.5 MG IV (08:27)
[2024-08-08 08:29] VITALS: BP 113/71
[2024-08-08 08:55] LABS: ALT (SGPT) 36 U/L (0-35); AST (SGOT) 48 U/L (14-36); Albumin 4.3 g/dl (3.5-5.0); Alkaline Phosphatase 85 U/L (38-126); Direct Bilirubin 0.3 mg/dl (0.0-0.4); Iron 70 ug/dl (37-170); Total Protein 8.3 g/dl (6.3-8.2)
[2024-08-08] MEDS: GAMMAGARD 50 IV (08:56)
[2024-08-08 08:57] VITALS: BP 111/69
[2024-08-08 09:05] LABS: Percent Saturation 25 % (20-50); Total Iron Binding Capacity 279 ug/dl (265-497)
[2024-08-08 09:27] VITALS: BP 113/78
[2024-08-08] MEDS: GAMMAGARD 200 IV ×2 (09:30→10:27)
[2024-08-08 09:57] VITALS: BP 103/66
[2024-08-08 10:05] VITALS: BP 113/67
[2024-08-08 10:27] VITALS: BP 103/72
[2024-08-08 10:48] LABS: IgA 108 mg/dl (70-400)
[2024-08-09 07:45] VITALS: BP 119/76
[2024-08-09] MEDS: TYLENOL 650 MG PO (07:55)
[2024-08-09] MEDS: NSS 250 IV (07:56)
[2024-08-09] MEDS: BENADRYL 50.5 MG IV (07:57)
[2024-08-09] MEDS: GAMMAGARD 50 IV (08:26)
[2024-08-09 08:29] VITALS: BP 117/81
[2024-08-09 08:59] VITALS: BP 105/67
[2024-08-09] MEDS: GAMMAGARD 200 IV ×2 (09:03→10:00)
[2024-08-09 09:29] VITALS: BP 107/69
[2024-08-09 09:59] VITALS: BP 112/73
[2024-08-09 10:29] VITALS: BP 117/75
[2024-08-09 17:27] LABS: tTG IgA Antibody <1.02 FLU (0.00-4.99)
[2024-08-10 00:11] LABS: F-Actin Antibody IgG 17 Units (0-19); Mitochondrial M2 Ab, IgG 10.6 Units (0.0-24.9)
[2024-08-10 01:56] LABS: ANA, IgG Reflex to HEp-2 Detected (None Detected)
[2024-08-10 18:36] LABS: Endomysial IgA Antibody Titer <1:10 (<1:10)
[2024-08-11 08:53] LABS: ANA, HEp-2, IgG Detected (<1:80)
[2024-08-12 06:54] LABS: ANA Pattern Speckled
[2024-08-22 08:05] VITALS: BP 108/73
[2024-08-22] MEDS: BENADRYL 50.5 MG IV (08:21)
[2024-08-22] MEDS: TYLENOL 650 MG PO (08:22)
[2024-08-22] MEDS: NSS 250 IV (08:23)
[2024-08-22 08:50] VITALS: BP 107/64
[2024-08-22] MEDS: GAMMAGARD 300 IV (08:50)
[2024-08-22 09:20] VITALS: BP 103/68
[2024-08-22 09:50] VITALS: BP 101/66
[2024-08-22 10:20] VITALS: BP 101/74
[2024-08-22 10:46] VITALS: BP 103/67
[2024-08-23 08:00] VITALS: BP 112/67
[2024-08-23] MEDS: NSS 250 IV (08:15)
[2024-08-23] MEDS: BENADRYL 25 MG PO (08:18)
[2024-08-23] MEDS: TYLENOL 650 MG PO (08:19)
[2024-08-23 08:20] VITALS: BP 112/67
[2024-08-23] MEDS: GAMMAGARD 300 IV (08:20)
[2024-08-23 08:50] VITALS: BP 111/74
[2024-08-23 09:20] VITALS: BP 113/70
[2024-08-23 09:50] VITALS: BP 109/72
[2024-08-23 10:00] VITALS: BP 106/68
[2024-08-24] MEDS: NSS 250 IV (08:02)
[2024-08-24] MEDS: TYLENOL 650 MG PO (08:02)
[2024-08-24] MEDS: BENADRYL 50.5 MG IV (08:03)
[2024-08-24 08:10] VITALS: BP 100/66
[2024-08-24] MEDS: GAMMAGARD 300 IV (08:32)
[2024-08-24 08:36] VITALS: BP 108/75
[2024-08-24 09:06] VITALS: BP 107/70
[2024-08-24 09:36] VITALS: BP 111/74
[2024-08-24 10:06] VITALS: BP 113/75
[2024-08-24 10:36] VITALS: BP 122/74
== END 2024-08-24 12:41 | disposition home or self-care (01) ==
LOC: OID 07:45
PROVIDERS: Specialist; ATTENDING PHYSICIAN Psychiatry & Neurology Neurology; FAMILY PHYSICIAN Family Medicine; OTHER PHYSICIAN Internal Medicine Endocrinology, Diabetes & Metabolism; OTHER PHYSICIAN Internal Medicine Rheumatology; OTHER PHYSICIAN Nurse Practitioner Family
DX: G25.82 Stiff-man syndrome (principal); G70.00 Myasthenia gravis without (acute) exacerbation; M32.9 Systemic lupus erythematosus, unspecified; D51.9 Vitamin B12 deficiency anemia, unspecified
CPT/HCPCS: 80076; 82728; 82784; 83516; 83540; 83550; 86015; 86038; 86039; 86231; 86381; 96365; 96366; 96367; 96523; J1569

== ENCOUNTER 2024-09-16 07:51 | Outpatient (RCR) | payer BC, SELFPAY ==
[2024-08-25] MEDS: BENADRYL 50.5 MG IV (08:14)
[2024-08-25] MEDS: TYLENOL 650 MG PO (08:14)
[2024-08-25] MEDS: NSS 250 IV (08:15)
[2024-08-25 08:22] VITALS: BP 96/70
[2024-08-25 08:42] VITALS: BP 107/68
[2024-08-25] MEDS: GAMMAGARD 300 IV (08:42)
[2024-08-25 09:12] VITALS: BP 103/68
[2024-08-25 09:42] VITALS: BP 103/68
[2024-08-25 10:12] VITALS: BP 100/67
[2024-08-25 10:42] VITALS: BP 97/65
[2024-08-26 08:00] VITALS: BP 115/73
[2024-08-26] MEDS: BENADRYL 50.5 MG IV (08:17)
[2024-08-26] MEDS: TYLENOL 650 MG PO (08:18)
[2024-08-26] MEDS: NSS 250 IV (08:18)
[2024-08-26] MEDS: GAMMAGARD 300 IV (08:47)
[2024-08-26 08:52] VITALS: BP 110/73
[2024-08-26 09:22] VITALS: BP 110/71
[2024-08-26 09:52] VITALS: BP 110/71
[2024-08-26 10:22] VITALS: BP 110/71
[2024-08-26 10:52] VITALS: BP 110/70
[2024-09-13] MEDS: BENADRYL 50.5 MG IV (08:18)
[2024-09-13] MEDS: TYLENOL 650 MG PO (08:18)
[2024-09-13] MEDS: NSS 250 IV (08:19)
[2024-09-13 08:28] VITALS: BP 108/67
[2024-09-13 08:52] VITALS: BP 112/74
[2024-09-13] MEDS: GAMMAGARD 300 IV (08:52)
[2024-09-13 09:22] VITALS: BP 116/78
[2024-09-13 09:52] VITALS: BP 114/70
[2024-09-13 10:22] VITALS: BP 108/72
[2024-09-14] VITALS (7 sets, daily range): BP systolic 108–116; BP diastolic 74–79
[2024-09-14] MEDS: NSS 250 IV (08:05)
[2024-09-14] MEDS: TYLENOL 650 MG PO (08:06)
[2024-09-14] MEDS: BENADRYL 50.5 MG IV (08:10)
[2024-09-14] MEDS: GAMMAGARD 50 IV (08:36)
[2024-09-14] MEDS: GAMMAGARD 200 IV ×2 (09:12→10:06)
[2024-09-15] VITALS (7 sets, daily range): BP systolic 107–123; BP diastolic 74–78
[2024-09-15] MEDS: TYLENOL 650 MG PO (08:48)
[2024-09-15] MEDS: NSS 250 IV (08:50)
[2024-09-15] MEDS: BENADRYL 50.5 MG IV (08:50)
[2024-09-15] MEDS: GAMMAGARD 50 IV (09:19)
[2024-09-15] MEDS: GAMMAGARD 200 IV ×2 (09:57→10:55)
[2024-09-16 07:45] VITALS: BP 124/73
[2024-09-16] MEDS: BENADRYL 50.5 MG IV (08:08)
[2024-09-16] MEDS: TYLENOL 650 MG PO (08:08)
[2024-09-16] MEDS: NSS 250 IV (08:09)
[2024-09-16] MEDS: GAMMAGARD 300 IV (08:40)
[2024-09-16 08:43] VITALS: BP 119/74
[2024-09-16 09:13] VITALS: BP 123/77
[2024-09-16 09:43] VITALS: BP 119/76
[2024-09-16 10:15] VITALS: BP 123/81
[2024-09-16 10:30] LABS: Glucose - Point of Care 102 mg/dl (70-99)
--- NOTE | 2024-09-16 10:44 | RR ---
A Rapid Response was called on this patient, please see Rapid Response form.
1020 Pt completed day 4 IVIG without incident, NSS infusing . Pt ambulated to bathroom. Upon return patient c/o of ' blurred vision, I do not feel right' Pt diaphoretic to touch. Pt stated 'Had fruit snacks for breakfast'
1025 Fingerstick BS obtained 102. Vs BP 138/90 HR 87 resp 20 Pulse ox 99% on room air. Temp 99. Pt remains awake, alert , and oriented.
1030 Pt c/o 'chest tightness' BP 136/86 HR 90 Sats remain at 99-100%
Emergency medical response team called.
1035- Response team at bed side. Report given to Pippa ZAMORA Pt transported to Emergency Department by Emergency response team.
== END 2024-09-20 11:20 | disposition home or self-care (01) ==
LOC: OID 07:51
PROVIDERS: ATTENDING PHYSICIAN Psychiatry & Neurology Neurology; FAMILY PHYSICIAN Family Medicine; OTHER PHYSICIAN Internal Medicine Endocrinology, Diabetes & Metabolism; OTHER PHYSICIAN Internal Medicine Rheumatology; OTHER PHYSICIAN Nurse Practitioner Family
DX: G25.82 Stiff-man syndrome (principal); G70.00 Myasthenia gravis without (acute) exacerbation; M32.9 Systemic lupus erythematosus, unspecified; D51.9 Vitamin B12 deficiency anemia, unspecified
CPT/HCPCS: 82962; 96365; 96366; 96367; J1569

== ENCOUNTER 2024-09-16 10:47 | Emergency (ER) | payer BC, SELFPAY ==
[2024-09-16 10:50] VITALS: BP 139/88
[2024-09-16 10:53] VITALS: BMI 25.6
[2024-09-16 11:00] VITALS: BP 130/87
[2024-09-16] MEDS: NSS 1000 IV (11:36)
[2024-09-16] MEDS: MESTINON 60 MG PO (11:42)
[2024-09-16 12:00] VITALS: BP 122/83
[2024-09-16 12:00] LABS: % Basophils 1.2 % (0-2); % Eosinophils 1.2 % (0-6); % Immature Granulocytes 0.3 % (0-0.5); % Lymphocytes 24.2 % (20.5-51.1); % Neutrophils 65.1 % (42.2-75.2); Absolute Lymphocytes 0.8 10^3/uL (1.2-3.4); Absolute Monocytes 0.3 10^3/uL (0.1-0.6); Absolute Neutrophils 2.1 10^3/uL (1.4-6.5); Hematocrit 31.5 % (37.0-47.0); Hemoglobin 11.6 g/dL (12.0-16.0); Mean Corp Hgb Conc. 36.8 g/dL (33.0-37.0); Mean Corpuscular Hgb 40.3 pg (27.0-31.0); Mean Corpuscular Volume 109.4 fL (81.0-99.0); Mean Platelet Volume 9.6 fL (7.4-10.4); Nucleated Red Blood Cells % 0 %; Platelet Count 251 10^3/uL (130-400); Red Blood Cell Count 2.88 10^6/uL (4.20-5.40); Red Cell Dist. Width 16.8 % (11.5-14.5); White Blood Cell Count 3.3 10^3/uL (4.8-10.8)
[2024-09-16 12:04] LABS: ALT (SGPT) 25 U/L (0-35); AST (SGOT) 42 U/L (14-36); Albumin 3.7 g/dl (3.5-5.0); Alkaline Phosphatase 52 U/L (38-126); Blood Urea Nitrogen 5 mg/dl (7-17); Calcium 8.1 mg/dl (8.4-10.2); Carbon Dioxide 23 mmol/L (22-30); Chloride 109 mmol/L (98-107); Estimated Creatinine Clearance 110 ml/min; Glucose 102 mg/dl (70-99); Potassium 3.3 mmol/L (3.5-5.1); Sodium 139 mmol/L (135-145); Total Bilirubin 0.5 mg/dl (0.2-1.3); Total Protein 9.4 g/dl (6.3-8.2); eGFR > 60.00
--- NOTE | 2024-09-16 12:23 | ED.GENMED ---
History of Present Illness
General
Chief Complaint: Eye Problems
Time Seen by Provider: 09/16/24 10:55
History of Present Illness
History of Present Illness:
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 She was receiving her routine IVIG infusion, has received this for over 5
years on a every 3 to 5-week basis without any issues. At the completion of the infusion she began with facial tingling and diffuse extremity weakness bilaterally. She also notes blurry vision bilaterally. The vision seems to have improved. She
has no headache or neck pain with this. Denies any chest pain or shortness of breath. She notes that her myasthenia flares do feel somewhat comparable however those are typically managed with IV fluids and Mestinon although she did not take this
morning
Past History
Past History
ED Past Medical History: GERD, Psychiatric (generalized anxiety disorder), Other (pulmonary nodules) and Other (Myasthenia gravis with prior exacerbation, lupus, migraines, Celiacs)
ED Past Surgical History: (X3), Gynecological, Orthopedic and Other
Social History
Tobacco: Former smoker
Alcohol: None
Drug: None
Personal:
Living: with family
Employment: Employed
Family History
Family History: Other (Noncontributory)
Review of Systems
Review of Systems
Allergies reviewed?: Yes
All Other Systems: ROS reviewed and negative except as documented in HPI and ROS
Phy Exam
Physical Exam
Physical Exam:
GEN: Well appearing, NAD, WDWN
HEENT: Oral mucosa moist, no scleral icterus, no nasal congestion
Cardiac: Regular rate
Lung: No respiratory distress, no tachypnea
MSK: No gross deformity or injuries
Skin: Good color, no pallor or jaundice, no rashes
Neuro: AO x3; CN II-XII grossly intact. BUE strength 5/5 in all forbes, sensation intact and symmetric. BLE strength 5/5 in all forbes, sensation intact and symmetric
Psych: Calm, cooperative
Course
Orders/Labs/Results
Orders:
Orders
09/16/24 11:00
0.9% Sodium Chloride 1000 ml [Nss] 1,000 ml IV BOLUS
09/16/24 11:17
Pyridostigmine [Mestinon] 60 mg PO NOW STA
09/16/24 11:36
Complete Blood Count/With Diff Urgent
Comprehensive Metabolic Panel Urgent
Abnormal Lab Results
09/16/24
11:36
WBC 3.3 L 10^3/uL
(4.8-10.8)
RBC 2.88 L 10^6/uL
(4.20-5.40)
Hgb 11.6 L g/dL
(12.0-16.0)
Hct 31.5 L %
(37.0-47.0)
MCV 109.4 H fL
(81.0-99.0)
MCH 40.3 H pg
(27.0-31.0)
RDW 16.8 H %
(11.5-14.5)
Absolute Lymphs (auto) 0.8 L 10^3/uL
(1.2-3.4)
Potassium 3.3 L mmol/L
(3.5-5.1)
Chloride 109 H mmol/L
(98-107)
BUN 5 L mg/dl
(7-17)
Creatinine 0.5 L mg/dL
(0.6-1.0)
Glucose 102 H mg/dl
(70-99)
Calcium 8.1 L mg/dl
(8.4-10.2)
AST 42 H U/L
(14-36)
Total Protein 9.4 H g/dl
(6.3-8.2)
09/16/24 11:36
09/16/24 11:36
Vital Signs
Initial and Last Documented VS:
Initial Vital Signs
Pulse Resp Pulse Ox
82 16 98
09/16/24 10:49 09/16/24 10:49 09/16/24 10:49
Last Documented Vital Signs
Temp Pulse Resp BP Pulse Ox
98.6 F 85 14 139/88 96
09/16/24 10:50 09/16/24 12:00 09/16/24 12:00 09/16/24 10:50 09/16/24 12:00
MDM/Problems Addressed
MDM/Problems Addressed:
Patient has a nonfocal neurologic exam, global weakness and visual anomalies are most likely on the basis of her myasthenia flareup however she is able to ambulate under her own power. Labs are reassuring. She was given Mestinon and IV fluids with
improvement in symptoms and is suitable for discharge home
*Critical Care Note
Total Time (30-74mins, 75-104mins- exclusive of procedures): Not Applicable
ED Attending Note
-
Portions of this chart may have been created with voice recognition software.� Occasional wrong word or��sound alike� substitutions may have occurred due to the inherent limitations of voice recognition software.
Discharge Plan
Departure
Patient Disposition: Home (Routine Discharge)
Date of Disposition: 09/16/24
Time of Disposition: 13:08
Patient with high blood pressure during this ER visit?: No
Discharge Problem:
Weakness
Instructions: Weakness - ED discharge instructions
Prescriptions:
No Action
omeprazole 20 MG capsule,delayed release(DR/EC)
40 mg PO DAILY Qty: 0
ibuprofen 400 MG tablet
400 mg PO Q8HPRN PRN (Reason: pain)
hydroxychloroquine 200 MG tablet
400 mg PO DAILY
Probiotic 1 EACH capsule
1 cap PO DAILY
potassium chloride [Klor-Con M20] 20 MEQ tablet,ER particles/crystals
20 meq PO DAILY
Gammagard Liquid 10 GRAM/100 ML solution
30 g IV .X 5 D EVERY 3 WK
biotin 1 MG tablet
3 mg PO DAILY
ondansetron HCl 4 MG tablet
4 mg PO Q8HPRN PRN (Reason: NAUSEA)
cholecalciferol (vitamin D3) [Vitamin D3] 400 UNITS tablet
500 units PO DAILY
citalopram 10 MG tablet
30 mg PO HS
levalbuterol HCl 0.63 MG/3 ML solution for nebulization
0.63 mg inhalation DAILY PRN (Reason: TIGHNESS)
lorazepam 1 MG tablet
1 mg PO DAILY PRN (Reason: ANXIETY)
dextroamphetamine-amphetamine [Adderall] 10 mg Tablet
20 mg PO DAILY
pyridostigmine bromide [Mestinon] 60 mg Tablet
60 mg PO DAILY
mycophenolate mofetil [CellCept] 500 mg Tablet
1,000 mg PO DAILY
diphenhydramine HCl [Benadryl] 25 mg Capsule
25 mg PO HS PRN (Reason: seasonal allergies)
meclizine 25 mg Tablet
25 mg PO BID PRN (Reason: vertigo)
folic acid 1 mg Tablet
1 mg PO DAILY
Referrals:
Deborah Larose MD [Family Provider] -
Interventions
Interventions:
*Risk Screen - Suicide Last Done: 09/16/24 10:55
*General Assessment Last Done: 09/16/24 10:55
*Neglect/Abuse Screening Last Done: 09/16/24 10:55
*ED- Fall Risk Assessment Last Done: 09/16/24 11:00
*ED COVID-19 Vaccine History Last Done: 09/16/24 11:00
Discharge Date and Time
Print Language: DANISH
[2024-09-16 13:00] VITALS: BP 124/87
--- NOTE | 2024-09-16 13:40 | VATNOTE ---
Pt with port accessed at [facility], deaccessed per unit request at this time. Flushed with heparin per protocol (see MAR).
== END 2024-09-16 15:28 | disposition home or self-care (01) ==
LOC: EMR 10:47
PROVIDERS: Physician Assistant; EMERGENCY PHYSICIAN Emergency Medicine; FAMILY PHYSICIAN Family Medicine
DX: R53.1 Weakness (principal); G70.00 Myasthenia gravis without (acute) exacerbation
CPT/HCPCS: 80053; 82962; 85025; 96360; 96365; 96366; 96367; 99283; J1569

== ENCOUNTER 2024-09-27 06:17 | Day surgery (SDC) | payer BC, SELFPAY | END 2024-09-27 11:16 | disposition home or self-care (01) | LOC: GI 06:17 | PROVIDERS: ATTENDING PHYSICIAN Specialist | DX: D12.0 Benign neoplasm of cecum (principal); R19.7 Diarrhea, unspecified; K22.89 Other specified disease of esophagus; K21.00 Gastro-esophageal reflux disease with esophagitis, without bleeding; K31.89 Other diseases of stomach and duodenum; R68.81 Early satiety; R63.4 Abnormal weight loss | CPT/HCPCS: 45380; 43239; 88305; 88342 ==

== ENCOUNTER 2024-10-07 07:52 | Outpatient (RCR) | payer BC, SELFPAY ==
[2024-10-04 08:00] VITALS: BP 113/76
[2024-10-04 08:17] LABS: % Basophils 0.2 % (0-2); % Eosinophils 1.5 % (0-6); % Immature Granulocytes 0.2 % (0-0.5); % Lymphocytes 25.9 % (20.5-51.1); % Monocytes 9.2 % (1.7-9.3); Absolute Eosinophils 0.1 10^3/uL (0-0.7); Absolute Lymphocytes 1.1 10^3/uL (1.2-3.4); Absolute Monocytes 0.4 10^3/uL (0.1-0.6); Absolute Neutrophils 2.6 10^3/uL (1.4-6.5); Hematocrit 37.6 % (37.0-47.0); Hemoglobin 13.5 g/dL (12.0-16.0); Mean Corp Hgb Conc. 35.9 g/dL (33.0-37.0); Mean Corpuscular Hgb 38.4 pg (27.0-31.0); Mean Corpuscular Volume 106.8 fL (81.0-99.0); Mean Platelet Volume 9.7 fL (7.4-10.4); Platelet Count 236 10^3/uL (130-400); Red Blood Cell Count 3.52 10^6/uL (4.20-5.40); White Blood Cell Count 4.1 10^3/uL (4.8-10.8)
[2024-10-04] MEDS: TYLENOL 650 MG PO (08:25)
[2024-10-04] MEDS: NSS 250 IV (08:27)
[2024-10-04] MEDS: BENADRYL 50.5 MG IV (08:27)
[2024-10-04] MEDS: GAMMAGARD 300 IV (09:00)
[2024-10-04 09:01] VITALS: BP 107/72
[2024-10-04 09:31] VITALS: BP 111/76
[2024-10-04 09:42] LABS: ALT (SGPT) 45 U/L (0-35); AST (SGOT) 62 U/L (14-36); Albumin 4.2 g/dl (3.5-5.0); Alkaline Phosphatase 76 U/L (38-126); Blood Urea Nitrogen 12 mg/dl (7-17); Calcium 8.9 mg/dl (8.4-10.2); Carbon Dioxide 22 mmol/L (22-30); Chloride 102 mmol/L (98-107); Glucose 86 mg/dl (70-99); HDL Cholesterol 74 mg/dl; LDL Cholesterol, Calculated 106 mg/dl; Potassium 3.8 mmol/L (3.5-5.1); Sodium 134 mmol/L (135-145); Total Bilirubin 1.1 mg/dl (0.2-1.3); Total Cholesterol 191 mg/dl (50-199); Total Protein 7.8 g/dl (6.3-8.2); Triglyceride 58 mg/dl (10-149); Very Low Density Lipoprotein 11 mg/dl (0-30); eGFR > 60.00
[2024-10-04 10:01] VITALS: BP 107/74
[2024-10-04 10:35] VITALS: BP 109/76
[2024-10-04 10:48] LABS: Folate 2.9 ng/ml (2.76-20); Vitamin B12 262 pg/ml (239-931)
[2024-10-05] MEDS: BENADRYL 50.5 MG IV (08:03)
[2024-10-05] MEDS: NSS 250 IV (08:04)
[2024-10-05] MEDS: TYLENOL 650 MG PO (08:04)
[2024-10-05 08:30] VITALS: BP 110/74
[2024-10-05] MEDS: GAMMAGARD 300 IV (08:30)
[2024-10-05 08:36] VITALS: BP 125/84
[2024-10-05 09:00] VITALS: BP 112/75
[2024-10-05 09:30] VITALS: BP 108/71
[2024-10-05 10:00] VITALS: BP 111/76
[2024-10-05 10:27] VITALS: BP 112/76
[2024-10-06] MEDS: TYLENOL 650 MG PO (08:17)
[2024-10-06] MEDS: BENADRYL 50.5 MG IV (08:18)
[2024-10-06] MEDS: NSS 250 IV (08:19)
[2024-10-06 08:28] VITALS: BP 113/77
[2024-10-06] MEDS: GAMMAGARD 300 IV (08:55)
[2024-10-06 08:59] VITALS: BP 109/72
[2024-10-06 09:29] VITALS: BP 113/73
[2024-10-06 09:59] VITALS: BP 112/74
[2024-10-06 10:29] VITALS: BP 108/73
[2024-10-06 10:59] VITALS: BP 115/74
[2024-10-07] MEDS: TYLENOL 650 MG PO (08:11)
[2024-10-07] MEDS: NSS 250 IV (08:11)
[2024-10-07] MEDS: BENADRYL 50.5 MG IV (08:14)
[2024-10-07 08:22] VITALS: BP 108/74
[2024-10-07] MEDS: GAMMAGARD 300 IV (08:43)
[2024-10-07 08:47] VITALS: BP 106/74
[2024-10-07 09:17] VITALS: BP 110/72
[2024-10-07 09:47] VITALS: BP 108/74
[2024-10-07 10:17] VITALS: BP 112/73
[2024-10-07 10:30] VITALS: BP 108/72
== END 2024-10-10 10:23 | disposition home or self-care (01) ==
LOC: OID 07:52
PROVIDERS: ATTENDING PHYSICIAN Psychiatry & Neurology Neurology; FAMILY PHYSICIAN Family Medicine; OTHER PHYSICIAN Internal Medicine Endocrinology, Diabetes & Metabolism; OTHER PHYSICIAN Internal Medicine Rheumatology; OTHER PHYSICIAN Nurse Practitioner Family
DX: G25.82 Stiff-man syndrome (principal); G70.00 Myasthenia gravis without (acute) exacerbation; M32.9 Systemic lupus erythematosus, unspecified; D51.9 Vitamin B12 deficiency anemia, unspecified
CPT/HCPCS: 80053; 80061; 82607; 82746; 85025; 96361; 96365; 96366; 96367; J1569

== ENCOUNTER 2024-11-24 08:39 | Outpatient (RCR) | payer BC, SELFPAY ==
[2024-10-31] MEDS: NSS 250 IV (08:00)
[2024-10-31 08:06] VITALS: BP 122/71
[2024-10-31] MEDS: BENADRYL 50.5 MG IV (08:09)
[2024-10-31] MEDS: TYLENOL 650 MG PO (08:09)
[2024-10-31 08:35] VITALS: BP 109/75
[2024-10-31] MEDS: GAMMAGARD 300 IV (08:35)
[2024-10-31 09:05] VITALS: BP 115/75
[2024-10-31 09:35] VITALS: BP 117/72
[2024-10-31 10:05] VITALS: BP 110/72
[2024-10-31 10:15] VITALS: BP 119/75
[2024-11-01] MEDS: TYLENOL 650 MG PO (08:15)
[2024-11-01] MEDS: NSS 250 IV (08:16)
[2024-11-01] MEDS: BENADRYL 50.5 MG IV (08:16)
[2024-11-01 08:21] VITALS: BP 111/79
[2024-11-01] MEDS: GAMMAGARD 300 IV (08:48)
[2024-11-01 08:55] VITALS: BP 108/77
[2024-11-01 08:56] VITALS: BP 111/74
[2024-11-01 09:26] VITALS: BP 117/83
[2024-11-01 09:56] VITALS: BP 105/77
[2024-11-01 10:26] VITALS: BP 103/74
[2024-11-02] MEDS: BENADRYL 50.5 MG IV (08:14)
[2024-11-02] MEDS: NSS 250 IV (08:14)
[2024-11-02] MEDS: TYLENOL 650 MG PO (08:15)
[2024-11-02 08:21] VITALS: BP 111/66
[2024-11-02] MEDS: GAMMAGARD 300 IV (08:44)
[2024-11-02 08:46] VITALS: BP 109/70
[2024-11-02 09:16] VITALS: BP 108/75
[2024-11-02 09:46] VITALS: BP 104/71
[2024-11-02 10:16] VITALS: BP 112/75
[2024-11-02 10:46] VITALS: BP 114/72
[2024-11-03 08:00] VITALS: BP 111/73
[2024-11-03] MEDS: NSS 250 IV (08:17)
[2024-11-03] MEDS: BENADRYL 50.5 MG IV (08:18)
[2024-11-03] MEDS: TYLENOL 650 MG PO (08:18)
[2024-11-03] MEDS: GAMMAGARD 300 IV (08:46)
[2024-11-03 08:49] VITALS: BP 110/74
[2024-11-03 09:19] VITALS: BP 108/72
[2024-11-03 09:49] VITALS: BP 105/72
[2024-11-03 10:19] VITALS: BP 106/68
[2024-11-03 10:49] VITALS: BP 105/72
[2024-11-04 08:00] VITALS: BP 114/73
[2024-11-04] MEDS: TYLENOL 650 MG PO (08:17)
[2024-11-04] MEDS: NSS 250 IV (08:17)
[2024-11-04] MEDS: BENADRYL 50.5 MG IV (08:18)
[2024-11-04] MEDS: GAMMAGARD 300 IV (08:47)
[2024-11-04 08:49] VITALS: BP 107/68
[2024-11-04 09:19] VITALS: BP 115/75
[2024-11-04 09:49] VITALS: BP 111/70
[2024-11-04 10:19] VITALS: BP 117/65
[2024-11-04 10:49] VITALS: BP 116/66
[2024-11-21] MEDS: TYLENOL 650 MG PO (08:25)
[2024-11-21] MEDS: NSS 250 IV (08:25)
[2024-11-21] MEDS: BENADRYL 50.5 MG IV (08:26)
[2024-11-21 08:32] VITALS: BP 106/67
[2024-11-21] MEDS: GAMMAGARD 300 IV (08:55)
[2024-11-21 08:58] VITALS: BP 104/71
[2024-11-21 09:28] VITALS: BP 108/69
[2024-11-21 09:58] VITALS: BP 100/64
[2024-11-21 10:35] VITALS: BP 104/69
[2024-11-21 12:28] LABS: Urine Character Clear (Clear)
[2024-11-21 12:46] LABS: Urine Red Blood Cell 0-2 /HPF (0-2)
[2024-11-22 07:45] VITALS: BP 108/72
[2024-11-22] MEDS: TYLENOL 650 MG PO (08:13)
[2024-11-22] MEDS: NSS 250 IV (08:14)
[2024-11-22] MEDS: BENADRYL 50.5 MG IV (08:16)
[2024-11-22] MEDS: GAMMAGARD 300 IV (08:45)
[2024-11-22 08:49] VITALS: BP 113/72
[2024-11-22 09:19] VITALS: BP 106/70
[2024-11-22 09:49] VITALS: BP 114/77
[2024-11-22 10:19] VITALS: BP 109/76
[2024-11-22 10:40] VITALS: BP 109/75
[2024-11-23] MEDS: NSS 250 IV (08:16)
[2024-11-23] MEDS: TYLENOL 650 MG PO (08:16)
[2024-11-23] MEDS: BENADRYL 50.5 MG IV (08:17)
[2024-11-23 08:23] VITALS: BP 104/67
[2024-11-23 08:45] VITALS: BP 103/69
[2024-11-23] MEDS: GAMMAGARD 300 IV (08:45)
[2024-11-23 09:15] VITALS: BP 106/72
[2024-11-23 09:45] VITALS: BP 103/65
[2024-11-23 10:15] VITALS: BP 108/72
[2024-11-23 10:35] VITALS: BP 108/67
[2024-11-24 08:45] VITALS: BP 128/73
[2024-11-24] MEDS: TYLENOL 650 MG PO (09:00)
[2024-11-24] MEDS: NSS 250 IV (09:00)
[2024-11-24] MEDS: BENADRYL 50.5 MG IV (09:02)
[2024-11-24 09:30] VITALS: BP 115/75
[2024-11-24 09:31] VITALS: BP 115/75
[2024-11-24] MEDS: GAMMAGARD 300 IV (09:32)
[2024-11-24 10:00] VITALS: BP 116/70
[2024-11-24 10:30] VITALS: BP 111/74
[2024-11-24 11:10] VITALS: BP 110/74
== END 2024-11-24 15:23 | disposition home or self-care (01) ==
LOC: OID 08:39
PROVIDERS: Nurse Practitioner Family; ATTENDING PHYSICIAN Psychiatry & Neurology Neurology; FAMILY PHYSICIAN Family Medicine; OTHER PHYSICIAN Internal Medicine Endocrinology, Diabetes & Metabolism; OTHER PHYSICIAN Internal Medicine Rheumatology; OTHER PHYSICIAN Nurse Practitioner Family
DX: G25.82 Stiff-man syndrome (principal); G70.00 Myasthenia gravis without (acute) exacerbation; M32.9 Systemic lupus erythematosus, unspecified; D51.9 Vitamin B12 deficiency anemia, unspecified
CPT/HCPCS: 81003; 81015; 87077; 87086; 87186; 96361; 96365; 96366; 96367; J1569

== ENCOUNTER 2024-12-23 08:01 | Outpatient (RCR) | payer BC, SELFPAY ==
[2024-11-25] MEDS: NSS 250 IV (08:11)
[2024-11-25] MEDS: TYLENOL 650 MG PO (08:12)
[2024-11-25] MEDS: BENADRYL 50.5 MG IV (08:14)
[2024-11-25 08:22] VITALS: BP 116/73
[2024-11-25] MEDS: GAMMAGARD 300 IV (08:42)
[2024-11-25 08:43] VITALS: BP 109/71
[2024-11-25 09:13] VITALS: BP 104/73
[2024-11-25 09:43] VITALS: BP 111/69
[2024-11-25 10:13] VITALS: BP 111/66
[2024-11-25 10:43] VITALS: BP 105/72
[2024-12-19] MEDS: TYLENOL 650 MG PO (09:47)
[2024-12-19] MEDS: NSS 250 IV (09:47)
[2024-12-19] MEDS: BENADRYL 50.5 MG IV (09:48)
[2024-12-19 09:57] VITALS: BP 120/75
[2024-12-19] MEDS: GAMMAGARD 300 IV (10:14)
[2024-12-19 10:18] VITALS: BP 112/69
[2024-12-19 10:30] VITALS: BP 106/70
[2024-12-19 11:00] VITALS: BP 108/64
[2024-12-19 11:30] VITALS: BP 112/70
[2024-12-19 12:00] VITALS: BP 120/70
[2024-12-20 07:45] VITALS: BP 110/72
[2024-12-20] MEDS: NSS 250 IV (08:00)
[2024-12-20] MEDS: TYLENOL 650 MG PO (08:11)
[2024-12-20] MEDS: BENADRYL 50.5 MG IV (08:14)
[2024-12-20] MEDS: GAMMAGARD 300 IV (08:41)
[2024-12-20 08:45] VITALS: BP 109/75
[2024-12-20 09:15] VITALS: BP 109/71
[2024-12-20 09:45] VITALS: BP 110/70
[2024-12-20 10:15] VITALS: BP 119/72
[2024-12-20 10:45] VITALS: BP 114/71
[2024-12-21 08:30] VITALS: BP 109/09
[2024-12-21] MEDS: TYLENOL 650 MG PO (08:49)
[2024-12-21] MEDS: NSS 250 IV (08:50)
[2024-12-21] MEDS: BENADRYL 50.5 MG IV (08:53)
[2024-12-21] MEDS: GAMMAGARD 300 IV (09:30)
[2024-12-21 09:31] VITALS: BP 118/72
[2024-12-21 10:01] VITALS: BP 113/77
[2024-12-21 10:31] VITALS: BP 115/77
[2024-12-21 11:01] VITALS: BP 113/69
[2024-12-21 11:31] VITALS: BP 115/72
[2024-12-22 07:45] VITALS: BP 127/76
[2024-12-22] MEDS: TYLENOL 650 MG PO (08:23)
[2024-12-22] MEDS: BENADRYL 50.5 MG IV (08:24)
[2024-12-22] MEDS: NSS 250 IV (08:25)
[2024-12-22 08:52] VITALS: BP 113/83
[2024-12-22] MEDS: GAMMAGARD 300 IV (08:52)
[2024-12-22 09:22] VITALS: BP 110/75
[2024-12-22 09:52] VITALS: BP 117/80
[2024-12-22 10:22] VITALS: BP 114/76
[2024-12-22 10:52] VITALS: BP 117/71
[2024-12-23 07:45] VITALS: BP 119/70
[2024-12-23] MEDS: TYLENOL 650 MG PO (08:09)
[2024-12-23] MEDS: NSS 250 IV (08:09)
[2024-12-23] MEDS: BENADRYL 50.5 MG IV (08:11)
[2024-12-23] MEDS: GAMMAGARD 300 IV (08:44)
[2024-12-23 08:45] VITALS: BP 115/70
[2024-12-23 09:15] VITALS: BP 116/72
[2024-12-23 09:45] VITALS: BP 114/75
[2024-12-23 10:15] VITALS: BP 114/74
[2024-12-23 10:45] VITALS: BP 124/73
== END 2024-12-23 11:37 | disposition home or self-care (01) ==
LOC: OID 08:01
PROVIDERS: ATTENDING PHYSICIAN Psychiatry & Neurology Neurology; FAMILY PHYSICIAN Family Medicine; OTHER PHYSICIAN Internal Medicine Endocrinology, Diabetes & Metabolism; OTHER PHYSICIAN Internal Medicine Rheumatology; OTHER PHYSICIAN Nurse Practitioner Family
DX: G25.82 Stiff-man syndrome (principal); G70.00 Myasthenia gravis without (acute) exacerbation; M32.9 Systemic lupus erythematosus, unspecified; D51.9 Vitamin B12 deficiency anemia, unspecified
CPT/HCPCS: 96365; 96366; 96367; J1569

== ENCOUNTER 2025-01-13 08:16 | Outpatient (RCR) | payer BC, SELFPAY ==
[2025-01-09] VITALS (7 sets, daily range): BP systolic 107–121; BP diastolic 75–83
[2025-01-09] MEDS: TYLENOL 650 MG PO (08:31)
[2025-01-09] MEDS: BENADRYL 50.5 MG IV (08:32)
[2025-01-09] MEDS: NSS 250 IV (08:33)
[2025-01-09] MEDS: GAMMAGARD 300 IV (09:02)
[2025-01-10] MEDS: NSS 250 IV (08:15)
[2025-01-10] MEDS: TYLENOL 650 MG PO (08:15)
[2025-01-10] MEDS: BENADRYL 50.5 MG IV (08:16)
[2025-01-10 08:30] VITALS: BP 112/75
[2025-01-10 08:50] VITALS: BP 117/79
[2025-01-10] MEDS: GAMMAGARD 300 IV (08:50)
[2025-01-10 09:20] VITALS: BP 112/78
[2025-01-10 09:40] LABS: ALT (SGPT) 27 U/L (0-35); AST (SGOT) 52 U/L (14-36); Albumin 4.0 g/dl (3.5-5.0); Alkaline Phosphatase 62 U/L (38-126); Total Protein 7.5 g/dl (6.3-8.2)
[2025-01-10 09:50] VITALS: BP 117/77
[2025-01-10 10:20] VITALS: BP 112/78
[2025-01-10 10:40] VITALS: BP 115/75
[2025-01-11 08:00] VITALS: BP 117/76
[2025-01-11] MEDS: TYLENOL 650 MG PO (08:12)
[2025-01-11] MEDS: BENADRYL 50.5 MG IV (08:13)
[2025-01-11] MEDS: NSS 250 IV (08:14)
[2025-01-11 08:45] VITALS: BP 120/76
[2025-01-11] MEDS: GAMMAGARD 300 IV (08:46)
[2025-01-11 09:17] VITALS: BP 119/76
[2025-01-11 09:47] VITALS: BP 119/76
[2025-01-11 10:17] VITALS: BP 118/75
[2025-01-11 10:47] VITALS: BP 125/76
[2025-01-12 08:00] VITALS: BP 124/72
[2025-01-12] MEDS: NSS 250 IV (08:13)
[2025-01-12] MEDS: BENADRYL 50.5 MG IV (08:14)
[2025-01-12] MEDS: TYLENOL 650 MG PO (08:15)
[2025-01-12] MEDS: GAMMAGARD 300 IV (08:43)
[2025-01-12 08:44] VITALS: BP 120/77
[2025-01-12 09:15] VITALS: BP 118/83
[2025-01-12 09:45] VITALS: BP 116/79
[2025-01-12 10:15] VITALS: BP 122/79
[2025-01-12 10:40] VITALS: BP 118/75
[2025-01-13] MEDS: BENADRYL 50.5 MG IV (08:22)
[2025-01-13] MEDS: TYLENOL 650 MG PO (08:22)
[2025-01-13] MEDS: NSS 250 IV (08:23)
[2025-01-13 08:33] VITALS: BP 118/76
[2025-01-13] MEDS: GAMMAGARD 300 IV (08:53)
[2025-01-13 08:57] VITALS: BP 116/76
[2025-01-13 09:27] VITALS: BP 121/82
[2025-01-13 09:57] VITALS: BP 112/73
[2025-01-13 10:27] VITALS: BP 118/74
[2025-01-13 10:57] VITALS: BP 110/71
== END 2025-01-16 09:44 | disposition home or self-care (01) ==
LOC: OID 08:16
PROVIDERS: ATTENDING PHYSICIAN Psychiatry & Neurology Neurology; FAMILY PHYSICIAN Family Medicine; OTHER PHYSICIAN Internal Medicine Endocrinology, Diabetes & Metabolism; OTHER PHYSICIAN Internal Medicine Rheumatology; OTHER PHYSICIAN Nurse Practitioner Family; REFERRING PHYSICIAN Specialist
DX: G25.82 Stiff-man syndrome (principal); G70.00 Myasthenia gravis without (acute) exacerbation; M32.9 Systemic lupus erythematosus, unspecified; D51.9 Vitamin B12 deficiency anemia, unspecified; R79.89 Other specified abnormal findings of blood chemistry; R19.4 Change in bowel habit
CPT/HCPCS: 80076; 84443; 96365; 96366; 96367; J1569

== ENCOUNTER → 2025-01-23 10:57 | Outpatient (REF) | payer BC, SELFPAY | LOC: WDC 10:57 | PROVIDERS: ATTENDING PHYSICIAN Family Medicine | DX: Z12.31 Encounter for screening mammogram for malignant neoplasm of breast (principal) | CPT/HCPCS: 77063; 77067 ==

== ENCOUNTER → 2025-01-26 09:32 | Outpatient (REF) | payer BC, SELFPAY | LOC: REG 09:32 | PROVIDERS: ATTENDING PHYSICIAN Family Medicine | DX: M54.50 Low back pain, unspecified (principal); M25.551 Pain in right hip; M25.552 Pain in left hip | CPT/HCPCS: 72110; 73522 ==

== ENCOUNTER 2025-02-10 07:46 | Outpatient (RCR) | payer BC, SELFPAY ==
[2025-02-06] MEDS: BENADRYL 50.5 MG IV (08:21)
[2025-02-06] MEDS: NSS 250 IV (08:22)
[2025-02-06] MEDS: TYLENOL 650 MG PO (08:23)
[2025-02-06 08:31] VITALS: BP 109/57
[2025-02-06] MEDS: GAMMAGARD 300 IV (08:49)
[2025-02-06 08:50] VITALS: BP 98/68
[2025-02-06 09:20] VITALS: BP 98/67
[2025-02-06 09:50] VITALS: BP 96/62
[2025-02-06 10:20] VITALS: BP 101/64
[2025-02-06 10:40] VITALS: BP 97/59
[2025-02-07] MEDS: NSS IV (07:56)
[2025-02-07] MEDS: TYLENOL 650 MG PO (07:57)
[2025-02-07] MEDS: NSS 250 IV (08:08)
[2025-02-07] MEDS: BENADRYL 50.5 MG IV (08:09)
[2025-02-07 08:25] VITALS: BP 98/71
[2025-02-07] MEDS: GAMMAGARD 300 IV (08:43)
[2025-02-07 08:46] VITALS: BP 104/63
[2025-02-07 09:16] VITALS: BP 99/61
[2025-02-07 09:46] VITALS: BP 113/72
[2025-02-07 10:16] VITALS: BP 101/68
[2025-02-07 10:46] VITALS: BP 95/64
[2025-02-08 13:00] VITALS: BP 109/67
[2025-02-08] MEDS: NSS 250 IV (13:07)
[2025-02-08] MEDS: BENADRYL 50.5 MG IV (13:08)
[2025-02-08] MEDS: TYLENOL 650 MG PO (13:08)
[2025-02-08 13:34] VITALS: BP 109/67
[2025-02-08] MEDS: GAMMAGARD 300 IV (13:34)
[2025-02-08 14:04] VITALS: BP 111/69
[2025-02-08 14:34] VITALS: BP 107/62
[2025-02-08 15:04] VITALS: BP 100/68
[2025-02-08 15:15] VITALS: BP 103/65
[2025-02-09] MEDS: TYLENOL 650 MG PO (08:15)
[2025-02-09] MEDS: NSS 250 IV (08:15)
[2025-02-09] MEDS: BENADRYL 50.5 MG IV (08:17)
[2025-02-09] MEDS: GAMMAGARD 300 IV (08:45)
[2025-02-09 08:49] VITALS: BP 112/76
[2025-02-09 09:18] VITALS: BP 109/70
[2025-02-09 09:19] VITALS: BP 102/73
[2025-02-09 09:49] VITALS: BP 106/63
[2025-02-09 10:19] VITALS: BP 100/68
[2025-02-09 10:49] VITALS: BP 105/60
[2025-02-10 07:45] VITALS: BP 118/70
[2025-02-10] MEDS: NSS 250 IV (08:02)
[2025-02-10] MEDS: BENADRYL 50.5 MG IV (08:03)
[2025-02-10] MEDS: TYLENOL 650 MG PO (08:03)
[2025-02-10] MEDS: GAMMAGARD 300 IV (08:35)
[2025-02-10 08:37] VITALS: BP 117/80
[2025-02-10 09:07] VITALS: BP 108/74
[2025-02-10 09:37] VITALS: BP 105/67
[2025-02-10 10:07] VITALS: BP 107/66
[2025-02-10 10:19] VITALS: BP 106/66
== END 2025-02-13 11:09 | disposition home or self-care (01) ==
LOC: OID 07:46
PROVIDERS: ATTENDING PHYSICIAN Psychiatry & Neurology Neurology; FAMILY PHYSICIAN Family Medicine; OTHER PHYSICIAN Internal Medicine Endocrinology, Diabetes & Metabolism; OTHER PHYSICIAN Internal Medicine Rheumatology; OTHER PHYSICIAN Nurse Practitioner Family; REFERRING PHYSICIAN Specialist
DX: G70.00 Myasthenia gravis without (acute) exacerbation (principal); G25.82 Stiff-man syndrome (principal); M32.9 Systemic lupus erythematosus, unspecified; R79.89 Other specified abnormal findings of blood chemistry; R19.4 Change in bowel habit; D51.9 Vitamin B12 deficiency anemia, unspecified
CPT/HCPCS: 96365; 96366; 96367; J1569

== ENCOUNTER 2025-03-10 07:55 | Outpatient (RCR) | payer BC, SELFPAY ==
[2025-03-06] MEDS: NSS 250 IV (08:16)
[2025-03-06] MEDS: TYLENOL 650 MG PO (08:17)
[2025-03-06] MEDS: BENADRYL 50.5 MG IV (08:18)
[2025-03-06 08:26] VITALS: BP 115/67
[2025-03-06] MEDS: GAMMAGARD 300 IV (08:49)
[2025-03-06 08:53] VITALS: BP 118/66
[2025-03-06 09:23] VITALS: BP 114/71
[2025-03-06 09:53] VITALS: BP 113/74
[2025-03-06 10:25] VITALS: BP 105/74
[2025-03-07] MEDS: TYLENOL 650 MG PO (08:01)
[2025-03-07] MEDS: NSS 250 IV (08:02)
[2025-03-07] MEDS: BENADRYL 50.5 MG IV (08:03)
[2025-03-07 08:10] VITALS: BP 110/69
[2025-03-07] MEDS: GAMMAGARD 300 IV (08:37)
[2025-03-07 08:41] VITALS: BP 109/72
[2025-03-07 09:11] VITALS: BP 114/69
[2025-03-07 09:41] VITALS: BP 108/73
[2025-03-07 10:11] VITALS: BP 114/73
[2025-03-07 10:15] VITALS: BP 114/70
[2025-03-08 08:30] VITALS: BP 126/73
[2025-03-08] MEDS: BENADRYL 50.5 MG IV (08:42)
[2025-03-08] MEDS: NSS 250 IV (08:43)
[2025-03-08] MEDS: TYLENOL 650 MG PO (08:43)
[2025-03-08 09:15] VITALS: BP 123/74
[2025-03-08] MEDS: GAMMAGARD 300 IV (09:17)
[2025-03-08 09:48] VITALS: BP 122/75
[2025-03-08 10:18] VITALS: BP 120/70
[2025-03-08 10:48] VITALS: BP 118/73
[2025-03-08 11:00] VITALS: BP 113/75
[2025-03-09 08:30] VITALS: BP 113/78
[2025-03-09] MEDS: BENADRYL 50.5 MG IV (08:48)
[2025-03-09] MEDS: NSS 250 IV (08:49)
[2025-03-09] MEDS: TYLENOL 650 MG PO (08:49)
[2025-03-09] MEDS: GAMMAGARD 300 IV (09:18)
[2025-03-09 09:20] VITALS: BP 113/78
[2025-03-09 09:50] VITALS: BP 114/73
[2025-03-09 10:20] VITALS: BP 119/79
[2025-03-09 10:50] VITALS: BP 122/79
[2025-03-09 11:25] VITALS: BP 123/84
[2025-03-10 07:55] VITALS: BP 126/80
[2025-03-10] MEDS: BENADRYL 50.5 MG IV (08:14)
[2025-03-10] MEDS: NSS 250 IV (08:14)
[2025-03-10] MEDS: TYLENOL 650 MG PO (08:15)
[2025-03-10] MEDS: GAMMAGARD 300 IV (08:44)
[2025-03-10 08:45] VITALS: BP 116/73
[2025-03-10 09:15] VITALS: BP 111/73
[2025-03-10 09:45] VITALS: BP 115/79
[2025-03-10 10:15] VITALS: BP 115/79
[2025-03-10 10:45] VITALS: BP 114/81
== END 2025-03-13 07:55 | disposition home or self-care (01) ==
LOC: OID 07:55
PROVIDERS: ATTENDING PHYSICIAN Psychiatry & Neurology Neurology; FAMILY PHYSICIAN Family Medicine; OTHER PHYSICIAN Internal Medicine Endocrinology, Diabetes & Metabolism; OTHER PHYSICIAN Internal Medicine Rheumatology; OTHER PHYSICIAN Nurse Practitioner Family; REFERRING PHYSICIAN Specialist
DX: G25.82 Stiff-man syndrome (principal); G70.00 Myasthenia gravis without (acute) exacerbation; M32.9 Systemic lupus erythematosus, unspecified; R79.89 Other specified abnormal findings of blood chemistry; R19.4 Change in bowel habit; D51.9 Vitamin B12 deficiency anemia, unspecified
CPT/HCPCS: 96365; 96366; 96367; J1569

== ENCOUNTER 2025-04-07 07:35 | Outpatient (RCR) | payer BC, SELFPAY ==
[2025-04-03] MEDS: NSS 250 IV (08:09)
[2025-04-03] MEDS: TYLENOL 650 MG PO (08:10)
[2025-04-03] MEDS: BENADRYL 50.5 MG IV (08:10)
[2025-04-03 08:23] VITALS: BP 112/66
[2025-04-03] MEDS: GAMMAGARD 300 IV (08:40)
[2025-04-03 08:43] VITALS: BP 111/68
[2025-04-03 09:00] VITALS: BP 109/66
[2025-04-03 09:30] VITALS: BP 104/67
[2025-04-03 10:00] VITALS: BP 96/64
[2025-04-03 10:23] VITALS: BP 104/67
[2025-04-04] MEDS: TYLENOL 650 MG PO (09:00)
[2025-04-04] MEDS: BENADRYL 50.5 MG IV (09:01)
[2025-04-04 09:08] VITALS: BP 105/71
[2025-04-04] MEDS: GAMMAGARD 300 IV (09:29)
[2025-04-04 09:32] VITALS: BP 110/69
[2025-04-04 10:02] VITALS: BP 101/68
[2025-04-04 10:32] VITALS: BP 102/71
[2025-04-04 11:02] VITALS: BP 104/73
[2025-04-04 11:32] VITALS: BP 108/70
[2025-04-05] MEDS: TYLENOL 650 MG PO (07:58)
[2025-04-05] MEDS: BENADRYL 50.5 MG IV (07:59)
[2025-04-05] MEDS: NSS 250 IV (08:00)
[2025-04-05] MEDS: GAMMAGARD 300 IV (08:28)
[2025-04-05 08:32] VITALS: BP 123/71
[2025-04-05 09:02] VITALS: BP 119/74
[2025-04-05 09:32] VITALS: BP 106/69
[2025-04-05 09:47] VITALS: BP 119/70
[2025-04-05 10:10] VITALS: BP 107/68
[2025-04-06 08:00] VITALS: BP 117/75
[2025-04-06] MEDS: NSS 250 IV (08:10)
[2025-04-06] MEDS: BENADRYL 50.5 MG IV (08:11)
[2025-04-06] MEDS: TYLENOL 650 MG PO (08:12)
[2025-04-06] MEDS: GAMMAGARD 300 IV (08:46)
[2025-04-06 08:47] VITALS: BP 111/75
[2025-04-06 09:17] VITALS: BP 111/72
[2025-04-06 09:47] VITALS: BP 103/67
[2025-04-06 10:20] VITALS: BP 112/73
[2025-04-07 07:45] VITALS: BP 106/81
[2025-04-07] MEDS: NSS 250 IV (07:58)
[2025-04-07] MEDS: TYLENOL 650 MG PO (07:58)
[2025-04-07] MEDS: BENADRYL 50.5 MG IV (08:02)
[2025-04-07] MEDS: GAMMAGARD 300 IV (08:35)
[2025-04-07 08:36] VITALS: BP 106/81
[2025-04-07 09:06] VITALS: BP 103/68
[2025-04-07 09:36] VITALS: BP 107/73
[2025-04-07 10:10] VITALS: BP 105/78
== END 2025-04-10 07:58 | disposition home or self-care (01) ==
LOC: OID 07:35
PROVIDERS: ATTENDING PHYSICIAN Psychiatry & Neurology Neurology; FAMILY PHYSICIAN Family Medicine; OTHER PHYSICIAN Internal Medicine Endocrinology, Diabetes & Metabolism; OTHER PHYSICIAN Internal Medicine Rheumatology; OTHER PHYSICIAN Nurse Practitioner Family; REFERRING PHYSICIAN Specialist
DX: G25.82 Stiff-man syndrome; G70.00 Myasthenia gravis without (acute) exacerbation; M32.9 Systemic lupus erythematosus, unspecified; R79.89 Other specified abnormal findings of blood chemistry; R19.4 Change in bowel habit; D51.9 Vitamin B12 deficiency anemia, unspecified
CPT/HCPCS: 96365; 96366; 96367; J1569